=== PATIENT | male | born 1935 | race Caucasian/White ===

== ENCOUNTER 2016-08-29 09:14 | Emergency (ER) | payer MEDICARE, BC ==
[2016-08-29] MEDS ORDERED: 0.9 % SODIUM CHLORIDE 1,000 ML BAG IV ONE (09:29)
--- NOTE | 2016-08-29 09:30 | Emergency Department Record ---
History of Present Illness - General Chief complaint: Weakness Stated complaint: FEVER,WEAKNESS Time Seen by Provider: 08/29/16 09:23 Source: Patient, EMS Mode of Arrival: EMS Limitations: No limitations - History of Present Illness Initial comments: 80 yo male presents with weakness, dizziness, subjective fevers. He states he began to not feel well last night. He noted that he had chills and subjective fevers. Mild cough. No NVD. No rash. This morning he felt weak, lightheaded and dizzy. He denies and syncope. No chest pain. He did not have a Flu shot yet this year. No dysuria. PCP is Dr Pena. Complaint: Generalized weakness Onset/Timin -: Hour(s) Location: Generalized Severity: Mild Improves with: None Worsens with: None Associated Symptoms: Fever/chills - [place] Coma Scale Eye Response: (4) Open spontaneously Motor Response: (6) Obeys commands Verbal Response: (5) Oriented [place] Total: 15 - Related Data Home Medications Medication Instructions Recorded Confirmed Last Taken Albuterol Sulfate [Proair Hfa] 1 - 2 puff IH .EVERY 4-6 HOURS PRN 01/24/1508/2912/12/15 Fexofenadine HCl 180 mg PO DAILY 01/24/15 08/29/16 12/13/15 Fluticasone/Salmeterol [Advair 1 each IH Q6H 01/24/15 08/29/16 12/12/15 100-50 Diskus] Omeprazole [Prilosec] 20 mg PO DAILY 01/24/15 08/29/16 08/28/16 Ropinirole HCl [Requip] 0.25 mg PO QHS 01/24/15 08/29/16 08/28/16 Aspirin [Adult Low Dose Aspirin EC] 81 mg PO DAILY 08/29/16 08/29/16 Unknown Previous Rx's Medication Instructions Recorded Aspirin [Ecotrin] 325 mg PO DAILY #100 tablet. 12/15/15 Levothyroxine Sodium [Synthroid] 125 mcg PO DAILYTHY #30 tablet 12/15/15 Allergies Allergy/AdvReac Type Severity Reaction Status Date / Time Penicillins [PENICILLINS] AdvReac Unknown VOMITING Verified 08/29/16 09:22 Travel Screening - Travel/Exposure Within Last 30 Days Have you traveled within the last 30 days?: No Review of Systems Constitutional: Reports: Chills, Fever, Malaise, Weakness Eyes: Denies: Eye discharge, Eye pain, Photophobia, Vision change ENT: Reports: Congestion. Denies: Ear pain, Epistaxis Respiratory: Reports: Cough. Denies: Dyspnea, Hemoptysis, Stridor, Wheezes Cardiovascular: Denies: Chest pain, Palpitations, Syncope Endocrine: Reports: Fatigue. Denies: Polydipsia, Polyuria Gastrointestinal: Reports: Nausea. Denies: Abdominal pain, Constipation, Diarrhea, Hematochezia, Vomiting Genitourinary: Denies: Dysuria, Frequency, Hematuria Musculoskeletal: Reports: Neck pain. Denies: Arthralgia, Back pain, Joint swelling Skin: Denies: Bruising, Change in color, Rash Neurological: Reports: Vertigo, Weakness. Denies: Confusion, Headache, Numbness , Paresthesias, Seizure, Tingling, Tremors Psychiatric: Denies: Anxiety Hematological/Lymphatic: Denies: Blood Clots, Easy bleeding, Easy bruising, Swollen glands Past Medical History - SOCIAL HISTORY Smoking Status: Former smoker Alcohol Use: Occassional Drug Use: None - RESPIRATORY Hx Respiratory Disorders: Yes Hx Asthma: Yes Hx COPD: Yes - CARDIOVASCULAR Hx Cardio Disorders: Yes Hx Abnormal EKG: Yes Hx Heart Attack: Yes Hx Hypertension: Yes Hx Pacemaker/Defib: Yes - NEURO Hx Neuro Disorders: Yes - GI Hx GI Disorders: Yes Comment:: constipation - Hx Genitourinary Disorders: Yes Hx Prostate Problems: Yes (Prostate) - ENDOCRINE Hx Endocrine Disorders: Yes Hx Thyroid Disease: Yes (Hypo) - MUSCULOSKELETAL Hx Musculoskeletal Disorders: Yes Hx Arthritis: Yes (Generalized) - PSYCH Hx Psych Problems: No - HEMATOLOGY/ONCOLOGY Hx Hematology/Oncology Disorders: Yes Hx Cancer: Yes (Prostate) Hx Chemotherapy: No Hx Radiation Therapy: No Family Medical History Any Significant Family History?: Yes Hx Cancer: Brother/Sister Hx Heart Disease: Father Physical Exam - General General Appearance: Alert, Oriented x3, Cooperative, No acute distress Limitations: No limitations - Head Head exam: Atraumatic, Normocephalic, Normal inspection - Eye Eye exam: Normal appearance, PERRL. negative: Conjunctival injection, Scleral icterus - ENT ENT exam: Mucous membranes dry, Normal orophraynx Ear exam: Normal external inspection. negative: External canal tenderness Nasal Exam: Normal inspection. negative: Discharge, Sinus tenderness Mouth exam: Normal external inspection, Tongue normal Teeth exam: Normal inspection. negative: Dental caries Throat exam: Normal inspection. negative: Tonsillar erythema, Tonsillar exudate - Neck Neck exam: Normal inspection, Full ROM. negative: Lymphadenopathy, Tenderness, Thyromegaly - Respiratory Respiratory exam: Normal lung sounds bilaterally. negative: Respiratory distress - Cardiovascular Cardiovascular Exam: Regular rate, Normal rhythm, Normal heart sounds - GI/Abdominal GI/Abdominal exam: Soft. negative: Distended, Guarding, Rebound, Rigid, Tenderness - Rectal Rectal exam: Deferred - exam: Deferred - Extremities Extremities exam: Normal inspection, Full ROM, Normal capillary refill. negative: Tenderness - Back Back exam: Reports: Normal inspection, Full ROM. Denies: CVA tenderness (R), CVA tenderness (L), Muscle spasm, Paraspinal tenderness, Rash noted, Tenderness , Vertebral tenderness - Neurological Neurological exam: Alert, CN II-XII intact, Normal gait, Oriented X3. negative : Altered - Psychiatric Psychiatric exam: Normal affect, Normal mood. negative: Agitated, Anxious - Skin Skin exam: Dry, Intact, Normal color, Warm Course Vital Signs 08/29/16 09:16 Temperature 97.8 F Pulse Rate 68 Respiratory 20 Rate Blood Pressure 92/66 Pulse Ox 95 - Reevaluation(s) Reevaluation #1: EKG 0929 Atrial Paced, capture, [place] left, ST no acute changes 08/29/16 09:38 Reevaluation #2: The CBC demonstrated a chronic anemia, CMP no acute changes, Troponin is negative, Influenza is negative. 08/29/16 10:17 BP 102/51 The patient states he feels back to normal at this time Additional history provided by his who is in the ER The CXR and HCT were negative for acute changes or acute process 08/29/16 10:25 Reevaluation #3: The patient walked to the restroom and back without any difficulty No UA yet. He will be given water He denies any complaints 08/29/16 10:47 Reevaluation #4: The UA is negative I will inform the patient's PCP of his symptoms prior to disposition. 08/29/16 13:26 Reevaluation #5: I SW Dr Pena He will see him in the office on He is to return if any symptoms recur 08/29/16 13:36 Medical Decision Making - Lab Data Result diagrams: 08/29/16 09:25 08/29/16 09:25 Disposition Disposition: Discharge Clinical Impression: Chills, Dizziness Disposition: Home, Self-Care Condition: (1) Good Instructions: Weakness (ED) Additional Instructions: Immediately return if you have any return of your symptoms Stay well hydrated Call Dr Pena for very close follow up of this ER visit Forms: Patient Portal Access Time of Disposition: 13:28
[2016-08-29 09:38] LABS: HEMATOCRIT 30.6 % (42.0-52.0); HEMOGLOBIN 10.3 gm/dl (14.0-18.0); MEAN CORPUSCULAR HGB CONC 33.7 g/dl (32-36); MEAN PLATELET VOLUME 8.6 fl (7.4-10.4); PLATELET COUNT 199 K/uL (130-400); RED BLOOD COUNT 2.86 M/uL (4.40-5.70); RED CELL DISTRIBUTION WIDTH 16.5 % (11.5-14.5); WHITE BLOOD COUNT W/O DIFF 9.8 K/uL (4.2-12.2)
[2016-08-29 09:51] LABS: ALB/GLOB RATIO 1.3 (1.1-1.8); ALBUMIN 3.9 gm/dL (3.5-5.0); ALKALINE PHOSPHATASE 116 U/L (38-126); ALT/SGPT 35 U/L (21-72); ANION GAP 11.8 (7-16); AST/SGOT 44 U/L (17-59); BILIRUBIN,TOTAL 0.67 mg/dL (0.2-1.3); BLOOD UREA NITROGEN 18 mg/dL (9-20); CARBON DIOXIDE 23.2 mmol/L (22-30); EST GLOMERULAR FILTRATION RATE > 60 ml/min; GLUCOSE,RANDOM 152 mg/dL (70-110); PLATELET ESTIMATE NORMAL (NORMAL); TOTAL PROTEIN 6.8 gm/dL (6.3-8.2)
[2016-08-29 09:58] LABS: INFLUENZA A NEGATIVE (NEGATIVE)
[2016-08-29 09:59] LABS: INFLUENZA B NEGATIVE (NEGATIVE)
[2016-08-29 10:02] LABS: TROPONIN I < 0.012 ng/mL (0.00-0.034)
[2016-08-29 13:07] LABS: URINE APPEARANCE CLEAR; URINE BILIRUBIN SMALL (NEGATIVE); URINE COLOR DARK YELLOW; URINE GLUCOSE (UA) NEGATIVE (NEGATIVE)
[2016-08-29 13:08] LABS: URINE BLOOD NEGATIVE (NEGATIVE); URINE KETONE NEGATIVE (NEGATIVE); URINE LEUKOCYTE ESTERASE NEGATIVE (NEGATIVE); URINE NITRITE NEGATIVE (NEGATIVE); URINE PROTEIN NEGATIVE (NEGATIVE); URINE UROBILINOGEN 0.2 E.U./dL (0.20 - 1.00)
--- NOTE | 2016-09-01 09:52 | RADIOLOGY REPORT ---
EXAM: HEAD CT WITHOUT CONTRAST HISTORY: FAINTING, DIZZINESS, WEAKNESS. TECHNIQUE: Noncontrast head CT was obtained. Comparison: Head CT 12/13/15. Encounter: Initial. Hand dominance: Unknown. FINDINGS: Moderate generalized atrophy of the brain. No acute intracranial hemorrhage, mass effect, or midline shift. No CT evidence of acute territorial infarct. Mild decreased attenuation in the periventricular white matter of the cerebral hemispheres. The ventricles, basal cisterns and sulci are within normal limits. Bilateral lens implants. The osseous structures and paranasal sinuses are unremarkable. IMPRESSION: 1. NO ACUTE INTRACRANIAL PROCESS. 2. GENERALIZED ATROPHY OF THE BRAIN WITH MILD CHRONIC SMALL VESSEL ISCHEMIC CHANGE. JOB NUMBER: [id number] [facility]
--- NOTE | 2016-09-01 09:54 | RADIOLOGY REPORT ---
EXAM: CHEST, TWO VIEWS HISTORY: DIZZINESS, WEAKNESS, FAINTING. TECHNIQUE: Two views of the chest were obtained. Comparison: Chest x-ray 01/24/15. FINDINGS: Left side pacemaker is present. Chronic linear/reticular opacity at the right apex consistent with scarring. The left lung is clear. The cardiomediastinal silhouette is top normal in size. The diaphragm is unremarkable. Osteopenia. IMPRESSION: CHRONIC SCARRING AT THE RIGHT APEX. NO ACUTE INTRATHORACIC PROCESS. JOB [facility]BER: [id number] [facility]
== END 2016-08-29 13:53 | disposition home or self-care (01) ==
LOC: ER 09:14
DX: R42 Dizziness and giddiness (principal); R50.9 Fever, unspecified; R53.1 Weakness; J44.9 Chronic obstructive pulmonary disease, unspecified; I10 Essential (primary) hypertension; I25.2 Old myocardial infarction; Z87.891 Personal history of nicotine dependence
CPT/HCPCS: 70450; 71020; 80053; 81003; 82550; 82553; 84484; 85027; 87400; 93005; 93010; 96360; 96361; 99284; J7030

== ENCOUNTER 2017-01-01 10:18 | Emergency (ER) | payer MEDICARE, BC ==
[2017-01-01 10:30] LABS: HEMATOCRIT 30.3 % (42.0-52.0); HEMOGLOBIN 9.9 gm/dl (14.0-18.0); MEAN CELL VOLUME 108.6 fl (81-97); MEAN CORPUSCULAR HGB CONC 32.7 g/dl (32-36); MEAN PLATELET VOLUME 9.1 fl (7.4-10.4); PLATELET COUNT 256 K/uL (130-400); RED BLOOD COUNT 2.79 M/uL (4.40-5.70); RED CELL DISTRIBUTION WIDTH 17.1 % (11.5-14.5); WHITE BLOOD COUNT W/O DIFF 9.8 K/uL (4.2-12.2)
--- NOTE | 2017-01-01 10:31 | Emergency Department Record ---
History of Present Illness - General Chief Complaint: Syncope Stated Complaint: SYNCOPAL EPISODE Time Seen by Provider: 01/01/17 10:22 Source: Patient, EMS Mode of Arrival: EMS Limitations: No limitations Travel/Exposure to [place] Within 21 Days of Symptoms: No - History of Present Illness Initial Comments: 81 yo male presents to ED with a CC of near syncope at home this morning witnessed by the patient's , denies LOC. Patient complains of "extreme thirst" and generalized weakness. Patient reports that he was drinking water in the kitchen when he passed out. Patient denies recent illness, fevers, chills, or cough symptoms. Patient reports history of chronic anemia. Patient denies focal weakness, chest pain, difficulty breathing, or recent illness. MD Complaint: Almost passed out Prodromal Symptoms: Lightheaded -: Second(s) Witnessed: No Injuries Sustained Associated with Event: None Current Symptoms: Other (Thirsty) Treatments Prior to Arrival: IV fluids - [place] Coma Scale Eye Response: (4) Open spontaneously Motor Response: (6) Obeys commands Verbal Response: (5) Oriented [place] Total: 15 - Related Data Home Medications Medication Instructions Recorded Confirmed Last Taken Albuterol Sulfate [Proair Hfa] 1 - 2 puff IH .EVERY 4-6 HOURS PRN 01/24/1501/0112/12/15 Fexofenadine HCl 180 mg PO DAILY 01/24/15 01/01/17 12/13/15 Fluticasone/Salmeterol [Advair 1 each IH Q6H 01/24/15 01/01/17 12/12/15 100-50 Diskus] Omeprazole [Prilosec] 20 mg PO DAILY 01/24/15 01/01/17 08/28/16 Ropinirole HCl [Requip] 0.25 mg PO QHS 01/24/15 01/01/17 08/28/16 Aspirin [Adult Low Dose Aspirin EC] 81 mg PO DAILY 08/29/16 01/01/17 Unknown Previous Rx's Medication Instructions Recorded Levothyroxine Sodium [Synthroid] 125 mcg PO DAILYTHY #30 tablet 12/15/15 Allergies Allergy/AdvReac Type Severity Reaction Status Date / Time Penicillins [PENICILLINS] AdvReac Unknown VOMITING Verified 08/29/16 09:22 Review of Systems Constitutional: Reports: Weakness. Denies: Chills, Fever, Malaise, Night sweats Eyes: Denies: Eye discharge, Eye pain ENT: Denies: Congestion, Ear pain, Epistaxis Respiratory: Denies: Cough, Dyspnea Cardiovascular: Denies: Chest pain, Dyspnea on exertion Endocrine: Denies: Fatigue, Heat or cold intolerance Gastrointestinal: Denies: Abdominal pain, Nausea, Vomiting Genitourinary: Denies: Incontinence, Retention Musculoskeletal: Denies: Arthralgia, Back pain, Gout, Joint swelling Skin: Denies: Bruising, Change in color Neurological: Denies: Abnormal gait, Confusion, Headache, Seizure Psychiatric: Denies: Anxiety Hematological/Lymphatic: Reports: Anemia. Denies: Blood Clots Past Medical History - SOCIAL HISTORY Smoking Status: Former smoker Drug Use: None - RESPIRATORY Hx Respiratory Disorders: Yes Hx Asthma: Yes Hx COPD: Yes - CARDIOVASCULAR Hx Cardio Disorders: Yes Hx Abnormal EKG: Yes Hx Heart Attack: Yes Hx Hypertension: Yes Hx Pacemaker/Defib: Yes - NEURO Hx Neuro Disorders: Yes - GI Hx GI Disorders: Yes Comment:: constipation - Hx Genitourinary Disorders: Yes Hx Prostate Problems: Yes (Prostate) - ENDOCRINE Hx Endocrine Disorders: Yes Hx Thyroid Disease: Yes (Hypo) - MUSCULOSKELETAL Hx Musculoskeletal Disorders: Yes Hx Arthritis: Yes (Generalized) - PSYCH Hx Psych Problems: No - HEMATOLOGY/ONCOLOGY Hx Hematology/Oncology Disorders: Yes Hx Cancer: Yes (Prostate) Hx Chemotherapy: No Hx Radiation Therapy: No Family Medical History Hx Cancer: Brother/Sister Hx Heart Disease: Father Physical Exam - General General Appearance: Alert, Oriented x3, Cooperative, Mild distress, Other ( appears pale on examination, no new focal deficits on examination) Limitations: No limitations - Head Head exam: Atraumatic, Normocephalic, Normal inspection Head exam detail: negative: Abrasion, Contusion, Bowens's sign, General tenderness, Hematoma, Laceration - Eye Eye exam: Normal appearance. negative: Conjunctival injection, Periorbital swelling, Periorbital tenderness, Scleral icterus - ENT Ear exam: negative: Auricular hematoma, Auricular trauma Nasal Exam: negative: Active bleeding, Discharge, Dried blood, Foreign body Mouth exam: negative: Drooling, Laceration, Muffled voice, Tongue elevation - Neck Neck exam: Normal inspection. negative: Meningismus, Tenderness - Respiratory Respiratory exam: Normal lung sounds bilaterally. negative: Rales, Respiratory distress, Rhonchi, Stridor - Cardiovascular Cardiovascular Exam: Regular rate, Normal rhythm, Normal heart sounds - GI/Abdominal GI/Abdominal exam: Soft. negative: Rebound, Rigid, Tenderness - Rectal Rectal exam: Deferred - exam: Deferred - Extremities Extremities exam: Normal inspection. negative: Pedal edema, Tenderness - Back Back exam: Denies: CVA tenderness (R), CVA tenderness (L) - Neurological Neurological exam: Alert, Normal gait, Oriented X3 - Psychiatric Psychiatric exam: Normal affect, Normal mood - Skin Skin exam: Pallor. negative: Abrasion Type of lesion: negative: abrasion Course - Reevaluation(s) Reevaluation #1: 01/01/17 11:14 EKG: NSR 74 Normal axis, normal intervals No acute ST-T wave changes Reevaluation #2: 01/01/17 12:56 3rd Liter NS infusing, patient is tolerating PO, ambulated with steady gait at his baseline. Awaiting UA sample. Will continue to monitor. Reevaluation #3: 01/01/17 13:24 UA negative, patient has ambulated to the bathroom with steady gait and appears stable for discharge at this time. Medical Decision Making - Lab Data Result diagrams: 01/01/17 10:05 01/01/17 10:05 Disposition Disposition: Discharge Clinical Impression: Near syncope, Dehydration Disposition: Home, Self-Care Condition: (2) Stable Instructions: Near Syncope (ED) Additional Instructions: Return to ED if your symptoms worsen or if you have any concerns. Follow-up with your family doctor in 1-3 days as directed. Drink plenty of fluids/rest. Forms: Patient Portal Access Time of Disposition: 13:25
[2017-01-01 10:32] LABS: MEAN CORPUSCULAR HEMOGLOBIN 35.4 pg (27-33)
[2017-01-01 10:44] LABS: LACTIC ACID 2.2 mmol/L (0.7-2.1)
[2017-01-01 10:48] LABS: ALB/GLOB RATIO 1.3 (1.1-1.8); ALBUMIN 3.9 gm/dL (3.5-5.0); ALKALINE PHOSPHATASE 122 U/L (38-126); ALT/SGPT 29 U/L (21-72); AST/SGOT 36 U/L (17-59); BLOOD UREA NITROGEN 14 mg/dL (9-20); CREATININE 0.9 mg/dL (0.66-1.25); EST GLOMERULAR FILTRATION RATE > 60 ml/min; GLUCOSE,RANDOM 113 mg/dL (70-110)
[2017-01-01] MEDS: 0.9 % SODIUM CHLORIDE 1000ML 1,000 ML IV SCH ×2 (10:49→12:34)
[2017-01-01 10:56] LABS: TROPONIN I < 0.012 ng/mL (0.00-0.034)
[2017-01-01 11:45] LABS: ABO GROUP A; ANTIBODY SCREEN NEGATIVE (NEGATIVE); RH TYPE POSITIVE
[2017-01-01] MEDS ORDERED: 0.9 % SODIUM CHLORIDE 1000ML 1,000 ML IV SCH ×2 (11:45→12:30)
[2017-01-01 13:19] LABS: URINE APPEARANCE SL CLOUDY; URINE BILIRUBIN NEGATIVE (NEGATIVE); URINE BLOOD NEGATIVE (NEGATIVE); URINE COLOR YELLOW; URINE GLUCOSE (UA) NEGATIVE (NEGATIVE); URINE KETONE NEGATIVE (NEGATIVE); URINE LEUKOCYTE ESTERASE NEGATIVE (NEGATIVE); URINE NITRITE NEGATIVE (NEGATIVE); URINE PROTEIN NEGATIVE (NEGATIVE)
== END 2017-01-01 13:36 | disposition home or self-care (01) ==
LOC: ER 10:18
DX: R55 Syncope and collapse (principal); E86.0 Dehydration; I10 Essential (primary) hypertension; I25.2 Old myocardial infarction; J44.9 Chronic obstructive pulmonary disease, unspecified; Z87.891 Personal history of nicotine dependence
CPT/HCPCS: 80053; 81003; 83605; 84484; 85027; 86850; 86900; 86901; 96360; 96361; 99284; J7030

== ENCOUNTER 2017-01-16 17:04 | Emergency (ER) | payer MEDICARE, BC ==
--- NOTE | 2017-01-16 17:21 | Emergency Department Record ---
History of Present Illness - General Chief complaint: Weakness Stated complaint: POSS STROKE Time Seen by Provider: 01/16/17 17:08 Source: Patient, Family (patient's ) Mode of Arrival: Wheelchair Limitations: No limitations - History of Present Illness Initial comments: 81 yo male presents to ED from PCP's office for evaluation of possible CVA. Patient reports headache symptoms and transient weakness 8 hours ago with being able to sit up, however reports that he is now at his baseline. Patient denies focal weakness at this time, denies change in speech, denies any new facial droop symptoms. at the bedside agrees that the patient appears at his baseline. Patient denies recent illness symptoms, but reports chronic anemia. MD Complaint: Generalized weakness Onset/Timin -: Hour(s) Location: Generalized Severity: Mild Consistency: Now resolved Improves with: None Worsens with: None Associated Symptoms: Denies other symptoms - [place] Coma Scale Eye Response: (4) Open spontaneously Motor Response: (6) Obeys commands Verbal Response: (5) Oriented [place] Total: 15 - Related Data Home Medications Medication Instructions Recorded Confirmed Last Taken Albuterol Sulfate [Proair Hfa] 1 - 2 puff IH .EVERY 4-6 HOURS PRN 01/24/1501/1612/12/15 Fexofenadine HCl 180 mg PO DAILY 01/24/15 01/16/17 12/13/15 Fluticasone/Salmeterol [Advair 1 each IH Q6H 01/24/15 01/16/17 12/12/15 100-50 Diskus] Omeprazole [Prilosec] 20 mg PO DAILY 01/24/15 01/16/17 08/28/16 Ropinirole HCl [Requip] 0.25 mg PO QHS 01/24/15 01/16/17 08/28/16 Aspirin [Adult Low Dose Aspirin EC] 81 mg PO DAILY 08/29/16 01/16/17 Unknown Previous Rx's Medication Instructions Recorded Levothyroxine Sodium [Synthroid] 125 mcg PO DAILYTHY #30 tablet 12/15/15 Allergies Allergy/AdvReac Type Severity Reaction Status Date / Time Penicillins [PENICILLINS] AdvReac Unknown VOMITING Verified 08/29/16 09:22 Travel Screening - Travel/Exposure Within Last 30 Days Have you traveled within the last 30 days?: No Review of Systems Constitutional: Reports: Weakness. Denies: Chills, Fever, Malaise, Night sweats Eyes: Denies: Eye discharge, Eye pain, Photophobia ENT: Denies: Congestion, Ear pain, Epistaxis Respiratory: Denies: Cough, Dyspnea Cardiovascular: Denies: Chest pain, Dyspnea on exertion Endocrine: Denies: Fatigue, Heat or cold intolerance Gastrointestinal: Denies: Abdominal pain, Nausea, Vomiting Genitourinary: Denies: Incontinence, Retention, Testicular pain Musculoskeletal: Denies: Arthralgia, Back pain, Gout, Joint swelling Skin: Denies: Bruising, Change in color Neurological: Reports: Headache. Denies: Abnormal gait, Confusion, Numbness, Seizure Psychiatric: Denies: Anxiety Hematological/Lymphatic: Denies: Anemia, Blood Clots Past Medical History - SOCIAL HISTORY Smoking Status: Former smoker Alcohol Use: None Drug Use: None - RESPIRATORY Hx Respiratory Disorders: Yes Hx Asthma: Yes Hx COPD: Yes - CARDIOVASCULAR Hx Cardio Disorders: Yes Hx Abnormal EKG: Yes Hx Heart Attack: Yes Hx Hypertension: Yes Hx Pacemaker/Defib: Yes - NEURO Hx Neuro Disorders: Yes - GI Hx GI Disorders: Yes Comment:: constipation - Hx Genitourinary Disorders: Yes Hx Prostate Problems: Yes (Prostate) - ENDOCRINE Hx Endocrine Disorders: Yes Hx Thyroid Disease: Yes (Hypo) - MUSCULOSKELETAL Hx Musculoskeletal Disorders: Yes Hx Arthritis: Yes (Generalized) - PSYCH Hx Psych Problems: No - HEMATOLOGY/ONCOLOGY Hx Hematology/Oncology Disorders: Yes Hx Cancer: Yes (Prostate) Hx Chemotherapy: No Hx Radiation Therapy: No Family Medical History Any Significant Family History?: Yes Hx Cancer: Brother/Sister Hx Heart Disease: Father Physical Exam - General General Appearance: Alert, Oriented x3, Cooperative, No acute distress Limitations: No limitations - Head Head exam: Atraumatic, Normocephalic, Normal inspection Head exam detail: negative: Abrasion, Contusion, Bowens's sign, General tenderness, Hematoma, Laceration - Eye Eye exam: Normal appearance. negative: Conjunctival injection, Periorbital swelling, Periorbital tenderness, Scleral icterus - ENT Ear exam: negative: Auricular hematoma, Auricular trauma Nasal Exam: negative: Active bleeding, Discharge, Dried blood, Foreign body Mouth exam: negative: Drooling, Laceration, Muffled voice, Tongue elevation - Neck Neck exam: Normal inspection. negative: Meningismus, Tenderness - Respiratory Respiratory exam: Normal lung sounds bilaterally. negative: Rales, Respiratory distress, Rhonchi, Stridor - Cardiovascular Cardiovascular Exam: Regular rate, Normal rhythm, Normal heart sounds - GI/Abdominal GI/Abdominal exam: Soft. negative: Rebound, Rigid, Tenderness - Rectal Rectal exam: Deferred - exam: Deferred - Extremities Extremities exam: Normal inspection. negative: Calf tenderness, Pedal edema, Tenderness - Back Back exam: Denies: CVA tenderness (R), CVA tenderness (L) - Neurological Neurological exam: Oriented X3, Other (No new cranial nerve abnormalities on examination, patient has chronic left sided facial weakness/abnormality). negative: Motor sensory deficit - Psychiatric Psychiatric exam: Normal affect, Normal mood - Skin Skin exam: Normal color. negative: Abrasion Type of lesion: negative: abrasion Course Vital Signs 01/16/17 17:08 Temperature 97.7 F Pulse Rate 83 Respiratory 32 H Rate Blood Pressure 113/79 Pulse Ox 97 - Reevaluation(s) Reevaluation #1: 01/16/17 18:11 EKG: NSR 70 Indetermiante axis, normal intervals Nonspecific ST changes V4-V6 Unchanged from 01/01/17 01/16/17 18:12 Reevaluation #2: 01/16/17 18:28 Labs reviewed, Hgb 9.1/HCT 27.5 (baseline for the patient), Sodium is 129. Labs are otherwise grossly unremarkable for an acute process. CT Brain: Atrophy, nothing acute. Patient is not a candidate for tPA given his examination (no focal deficit) as well as the duration of symptoms (8 hours). Patient has no clinical evidence for stroke on examination, and both he and his deny any history of recent focal weakness, change in facial musculature, or speech. There is no clinical or historical evidence at this time to suggest TIA this morning either. I offered the patient transfer to [facility] for further neurological evaluation, both the patient and his declined. Patient already takes ASA 81 mg daily as well. Patient was instructed to return immediately to ED for any reoccurrence of his symptoms and not wait 8 hours before presentation. 01/16/17 18:34 Medical Decision Making - Lab Data Result diagrams: 01/16/17 17:40 01/16/17 17:40 Disposition Disposition: Discharge Clinical Impression: Generalized weakness Disposition: Home, Self-Care Condition: (2) Stable Instructions: Weakness (ED) Additional Instructions: Return to ED if immediately if your symptoms worsen or if you have any concerns. Follow-up with Dr. Pena in 3-5 days as directed. Forms: Patient Portal Access Time of Disposition: 18:33
[2017-01-16 17:47] LABS: HEMATOCRIT 27.5 % (42.0-52.0); HEMOGLOBIN 9.1 gm/dl (14.0-18.0); MEAN CELL VOLUME 107.4 fl (81-97); MEAN CORPUSCULAR HEMOGLOBIN 35.5 pg (27-33); MEAN CORPUSCULAR HGB CONC 33.1 g/dl (32-36); MEAN PLATELET VOLUME 8.8 fl (7.4-10.4); PLATELET COUNT 212 K/uL (130-400); RED BLOOD COUNT 2.56 M/uL (4.40-5.70); WHITE BLOOD COUNT W/O DIFF 11.9 K/uL (4.2-12.2)
[2017-01-16 18:03] LABS: ALB/GLOB RATIO 1.1 (1.1-1.8); ALBUMIN 3.8 gm/dL (3.5-5.0); ALKALINE PHOSPHATASE 116 U/L (38-126); ALT/SGPT 30 U/L (21-72); AST/SGOT 38 U/L (17-59); BLOOD UREA NITROGEN 22 mg/dL (9-20); CREATININE 0.8 mg/dL (0.66-1.25); EST GLOMERULAR FILTRATION RATE > 60 ml/min; GLUCOSE,RANDOM 87 mg/dL (70-110); INR 0.99; PROTHROMBIN TIME (PATIENT) 11.2 SECONDS (9.5-12.1); TOTAL PROTEIN 7.2 gm/dL (6.3-8.2)
[2017-01-16 18:16] LABS: TROPONIN I < 0.012 ng/mL (0.00-0.034)
--- NOTE | 2017-01-18 12:20 | CT SCAN REPORT ---
EXAM: HEAD CT WITHOUT CONTRAST HISTORY: VERTIGO AND WEAKNESS TODAY, POSSIBLE STROKE. TECHNIQUE: Axial CT scan of the head was performed without IV contrast. Comparison: Head CT dated 08/29/16. FINDINGS: No definite acute intracranial hemorrhage identified. No focal mass effect or midline shift apparent. Generalized atrophy with chronic appearing deep white matter changes, nonspecific, but likely representing some chronic small vessel deep white matter ischemic disease. No definite acute infarct or intracranial mass lesion is seen. No depressed calvarial fracture is evident. IMPRESSION: 1. GENERALIZED ATROPHY WITH CHRONIC APPEARING DEEP WHITE MATTER CHANGES. 2. NO DEFINITE ACUTE INTRACRANIAL HEMORRHAGE OR FOCAL MASS EFFECT IDENTIFIED. JOB NUMBER: [id number] [facility]TDD
== END 2017-01-16 18:53 | disposition home or self-care (01) ==
LOC: ER 17:04
DX: R53.1 Weakness (principal); E03.9 Hypothyroidism, unspecified; I10 Essential (primary) hypertension; J44.9 Chronic obstructive pulmonary disease, unspecified
CPT/HCPCS: 70450; 80053; 84484; 85027; 85610; 93005; 93010; 99284

== ENCOUNTER 2017-05-09 19:37 | Emergency (ER) | payer MEDICARE, BC ==
--- NOTE | 2017-05-09 19:50 | Emergency Department Record ---
History of Present Illness - General Chief Complaint: Dizziness Stated Complaint: DIZZINESS Time Seen by Provider: 05/09/17 19:41 Source: Patient Mode of Arrival: Ambulatory Limitations: No limitations - History of Present Illness Initial Comments: 81 yo male presents to ED with a CC of a "hot flash and dizziness" that occurred just prior to arrival. Patient reports that his symptoms have resolved and that he is "ready to go home". Patient reports that his symptoms occurred while playing card [place], denies recent illness, fevers, chills, nausea, or vomiting symptoms. Patient reports that his "hormone replacement" resulting from prostate removal is the cause of his intermittent symptoms. MD Complaint: Dizziness Onset/Timin -: Minutes(s) Timing: Sudden onset, Intermittent Description: Lightheadedness History of Same: Yes History of Trauma: No Severity: Moderate Improves With: Nothing Worsens With: Nothing Associated Symptoms: Denies other symptoms - [place] Coma Scale Eye Response: (4) Open spontaneously Motor Response: (6) Obeys commands Verbal Response: (5) Oriented Abel Total: 15 - Related Data Home Medications Medication Instructions Recorded Confirmed Last Taken Biotin 1,000 mcg PO QHS 05/09/17 05/09/17 Unknown Cholecalciferol (Vitamin D3) 1,000 unit PO DAILY 05/09/17 05/09/17 Unknown [Vitamin D3] Comp.stocking,Thigh,Long,X-Sml 1 each MC ASDIR 05/09/17 05/09/17 Unknown [T.e.d. Anti-Embolism Stocking] Cvs Leg Cramps Pain Relief. 1 tab PO BID 05/09/17 05/09/17 Unknown Furosemide [Lasix] 20 mg PO DAILY 05/09/17 05/09/17 Unknown Loperamide HCl [Loperamide] 2 mg PO ASDIR 05/09/17 05/09/17 Unknown Magnesium Hydroxide [Milk of 400 mg PO DAILY 05/09/17 05/09/17 Unknown Magnesia] Multivit-Min/FA/Lycopen/Lutein 1 each PO DAILY 05/09/17 05/09/17 Unknown [Centrum Silver Tablet] [place]-3 Acid Ethyl Esters [Lovaza] 2 gm PO DAILY 05/09/17 05/09/17 Unknown Potassium 99 mg PO DAILY 05/09/17 05/09/17 Unknown Sodium Chloride 1 gm PO BID 05/09/17 05/09/17 Unknown Vitamin E 400 unit PO DAILY 05/09/17 05/09/17 Unknown Previous Rx's Medication Instructions Recorded Levothyroxine Sodium [Synthroid] 125 mcg PO DAILYTHY #30 tablet 12/15/15 Allergies Allergy/AdvReac Type Severity Reaction Status Date / Time banana Allergy PT UNSURE Verified 05/09/17 19:50 OF REACTION cephalexin [From Keflex] Allergy NAUSEA AND Verified 05/09/17 19:50 VOMITING vancomycin Allergy RASH Verified 05/09/17 19:50 Penicillins [PENICILLINS] AdvReac Unknown VOMITING Verified 08/29/16 09:22 Review of Systems Constitutional: Denies: Chills, Fever, Malaise, Night sweats Eyes: Denies: Eye discharge, Eye pain ENT: Denies: Congestion, Ear pain, Epistaxis Respiratory: Denies: Cough, Dyspnea Cardiovascular: Reports: Edema. Denies: Palpitations, Syncope Endocrine: Denies: Fatigue, Heat or cold intolerance Gastrointestinal: Denies: Abdominal pain, Nausea, Vomiting Genitourinary: Denies: Incontinence, Retention Musculoskeletal: Denies: Arthralgia, Back pain, Gout, Joint swelling Skin: Denies: Bruising, Change in color Neurological: Reports: Vertigo. Denies: Abnormal gait, Confusion, Headache, Seizure Psychiatric: Denies: Anxiety Hematological/Lymphatic: Denies: Anemia, Blood Clots Past Medical History - SOCIAL HISTORY Smoking Status: Former smoker Drug Use: None - RESPIRATORY Hx Respiratory Disorders: Yes Hx Asthma: Yes Hx COPD: Yes - CARDIOVASCULAR Hx Cardio Disorders: Yes Hx Abnormal EKG: Yes Hx Heart Attack: Yes Hx Hypertension: Yes Hx Pacemaker/Defib: Yes - NEURO Hx Neuro Disorders: Yes - GI Hx GI Disorders: Yes Comment:: constipation - Hx Genitourinary Disorders: Yes Hx Prostate Problems: Yes (Prostate) - ENDOCRINE Hx Endocrine Disorders: Yes Hx Thyroid Disease: Yes (Hypo) - MUSCULOSKELETAL Hx Musculoskeletal Disorders: Yes Hx Arthritis: Yes (Generalized) - PSYCH Hx Psych Problems: No - HEMATOLOGY/ONCOLOGY Hx Hematology/Oncology Disorders: Yes Hx Cancer: Yes (Prostate) Hx Chemotherapy: No Hx Radiation Therapy: No Family Medical History Hx Cancer: Brother/Sister Hx Heart Disease: Father Physical Exam - General General Appearance: Alert, Oriented x3, Cooperative, No acute distress Limitations: No limitations - Head Head exam: Atraumatic, Normocephalic, Normal inspection Head exam detail: negative: Abrasion, Contusion, Bowens's sign, General tenderness, Hematoma, Laceration - Eye Eye exam: Normal appearance. negative: Conjunctival injection, Periorbital swelling, Periorbital tenderness, Scleral icterus - ENT Ear exam: negative: Auricular hematoma, Auricular trauma Nasal Exam: negative: Active bleeding, Discharge, Dried blood, Foreign body Mouth exam: negative: Drooling, Laceration, Muffled voice, Tongue elevation - Neck Neck exam: Normal inspection. negative: Meningismus, Tenderness - Respiratory Respiratory exam: Normal lung sounds bilaterally. negative: Rales, Respiratory distress, Rhonchi, Stridor - Cardiovascular Cardiovascular Exam: Regular rate, Normal rhythm, Normal heart sounds - GI/Abdominal GI/Abdominal exam: Soft. negative: Rebound, Rigid, Tenderness - Rectal Rectal exam: Deferred - exam: Deferred - Extremities Extremities exam: Pedal edema. negative: Calf tenderness, Tenderness - Back Back exam: Denies: CVA tenderness (R), CVA tenderness (L) - Neurological Neurological exam: Alert, Oriented X3. negative: Motor sensory deficit - Psychiatric Psychiatric exam: Normal affect, Normal mood - Skin Skin exam: Normal color. negative: Abrasion Type of lesion: negative: abrasion Course - Reevaluation(s) Reevaluation #1: 05/09/17 19:55 EKG: NSR 71 Normal axis, normal intervals No acute ST-T wave changes Reevaluation #2: 05/09/17 20:15 Labs reviewed, Hgb 8.1/HCT 25 (simialr to previous), Na 127. Labs are otherwise grossly unremarkable for an acute process. Unable to obtain UA as of yet. Reevaluation #3: 05/09/17 22:45 UA reviewed and appears negative for infection. BP 109/58, pulse 72. Patient appears stable for discharge with family members at the bedside. Medical Decision Making - Lab Data Result diagrams: 05/09/17 19:35 05/09/17 19:35 Disposition Disposition: Discharge Clinical Impression: Hot flash in male, Chronic anemia Disposition: Home, Self-Care Condition: (2) Stable Instructions: Dizziness (ED) Additional Instructions: Return to ED if your symptoms worsen or if you have any concerns. Follow-up with your family doctor in 1-3 days as directed. Forms: Patient Portal Access Time of Disposition: 22:47 Quality - Quality Measures Quality Measures: N/A - Blood Pressure Screening Does Patient Have Any of the Following: No Blood Pressure Classification: Normal BP Reading Systolic Measurement: 109 Diastolic Measurement: 58 Screening for High Blood Pressure: < Normal BP, F/U Not Required > [G8783]
[2017-05-09 19:55] LABS: HEMOGLOBIN 8.1 gm/dl (14.0-18.0); MEAN CELL VOLUME 107.3 fl (81-97); MEAN CORPUSCULAR HGB CONC 32.4 g/dl (32-36); MEAN PLATELET VOLUME 9.7 fl (7.4-10.4); PLATELET COUNT 251 K/uL (130-400); RED BLOOD COUNT 2.33 M/uL (4.40-5.70); RED CELL DISTRIBUTION WIDTH 19.7 % (11.5-14.5); WHITE BLOOD COUNT W/O DIFF 4.4 K/uL (4.2-12.2)
[2017-05-09 19:56] LABS: MEAN CORPUSCULAR HEMOGLOBIN 34.7 pg (27-33)
[2017-05-09 20:09] LABS: ALBUMIN 3.2 g/dL (4.0-5.0); ALKALINE PHOSPHATASE 145 U/L (40-129); ALT/SGPT 20 U/L (<41); AST/SGOT 32 U/L (10.0-50.0); BLOOD UREA NITROGEN 24 mg/dL (8-23); CREATINE PHOSPHOKINASE 56 U/L (39-308); CREATININE 0.9 mg/dL (0.7-1.2); EST GLOMERULAR FILTRATION RATE > 60 mL/min; GLUCOSE,RANDOM 103 mg/dL (74-109); TOTAL PROTEIN 6.4 g/dL (6.6-8.7)
[2017-05-09 20:19] LABS: CKMB 2.1 ng/mL (<6.73); TROPONIN I < 0.30 ng/mL (0.00-0.300)
[2017-05-09 22:42] LABS: URINE APPEARANCE CLEAR; URINE BILIRUBIN SMALL (NEGATIVE); URINE BLOOD NEGATIVE (NEGATIVE); URINE COLOR YELLOW; URINE GLUCOSE (UA) NEGATIVE (NEGATIVE); URINE KETONE TRACE (NEGATIVE); URINE LEUKOCYTE ESTERASE NEGATIVE (NEGATIVE); URINE NITRITE NEGATIVE (NEGATIVE); URINE PROTEIN TRACE (NEGATIVE)
== END 2017-05-09 23:00 | disposition home or self-care (01) ==
LOC: ER 19:37
DX: D64.9 Anemia, unspecified (principal); R42 Dizziness and giddiness; R23.2 Flushing; I10 Essential (primary) hypertension; I25.2 Old myocardial infarction; J44.9 Chronic obstructive pulmonary disease, unspecified; Z87.891 Personal history of nicotine dependence
CPT/HCPCS: 80053; 81003; 82550; 82553; 83605; 83880; 84484; 85027; 93005; 99284

== ENCOUNTER 2017-10-24 17:03 | Inpatient (IN) | payer BC, MEDICARE ==
--- NOTE | 2017-10-24 18:03 | Emergency Department Record ---
History of Present Illness - General Chief complaint: Weakness Stated complaint: WEAKNESS Time Seen by Provider: 10/24/17 17:59 Source: Patient, RN notes reviewed Mode of Arrival: EMS - History of Present Illness Initial comments: weak with nasal congestion and that is why he is SOB and he fell yesterday with a congustion right hip. Patient has a known history of anemia and his last hg 7.4 and he is seeing Dr. Grey tomorrow. Patient came in by ambulance because to weak. -: Unknown Location: Generalized - [place] Coma Scale Eye Response: (4) Open spontaneously Motor Response: (6) Obeys commands Verbal Response: (5) Oriented Abel Total: 15 - Related Data Previous Rx's Medication Instructions Recorded Levothyroxine Sodium [Synthroid] 125 mcg PO DAILYTHY #30 tablet 12/15/15 Allergies Allergy/AdvReac Type Severity Reaction Status Date / Time banana Allergy PT UNSURE Verified 10/24/17 17:12 OF REACTION cephalexin [From Keflex] Allergy NAUSEA AND Verified 10/24/17 17:12 VOMITING vancomycin Allergy RASH Verified 10/24/17 17:12 Penicillins [PENICILLINS] AdvReac Unknown VOMITING Verified 10/24/17 17:12 Travel Screening - Travel/Exposure Within Last 30 Days Have you traveled within the last 30 days?: No - Travel/Exposure Within Last Year Have you traveled outside the [place] in the last year?: No - Additonal Travel Details Have you been exposed to anyone with a communicable illness?: No - Travel Symptoms Symptom Screening: None Review of Systems Reviewed: No additional complaints except as noted below Constitutional: Reports: As per HPI. Denies: Chills, Fever, Malaise, Night sweats, Weakness, Weight change Eyes: Reports: As per HPI. Denies: Eye discharge, Eye pain, Photophobia, Vision change ENT: Reports: As per HPI. Denies: Congestion, Dental pain, Ear pain, Epistaxis , Hearing loss, Throat pain Respiratory: Reports: As per HPI. Denies: Cough, Dyspnea, Hemoptysis, Stridor, Wheezes Cardiovascular: Reports: As per HPI. Denies: Arrhythmia, Chest pain, Dyspnea on exertion, Edema, Murmurs, Orthopnea, Palpitations, Paroxysmal nocturnal dyspnea, Rheumatic Fever, Syncope Endocrine: Reports: As per HPI. Denies: Fatigue, Heat or cold intolerance, Polydipsia, Polyuria Gastrointestinal: Reports: As per HPI. Denies: Abdominal pain, Constipation, Diarrhea, Hematemesis, Hematochezia, Melena, Nausea, Vomiting Genitourinary: Reports: As per HPI. Denies: Dysuria, Frequency, Hematuria, Incontinence, Retention, Testicular pain, Testicular mass, Urgency Musculoskeletal: Reports: As per HPI. Denies: Arthralgia, Back pain, Gout, Joint swelling, Myalgia, Neck pain Skin: Reports: As per HPI. Denies: Bruising, Change in color, Change in hair/ nails, Lesions, Pruritus, Rash Neurological: Reports: As per HPI. Denies: Abnormal gait, Confusion, Headache, Numbness, Paresthesias, Seizure, Tingling, Tremors, Vertigo, Weakness Psychiatric: Reports: As per HPI. Denies: Anxiety, Auditory hallucinations, Depression, Homicidal thoughts, Suicidal thoughts, Visual hallucinations Hematological/Lymphatic: Reports: As per HPI. Denies: Anemia, Blood Clots, Easy bleeding, Easy bruising, Swollen glands Past Medical History - SOCIAL HISTORY Smoking Status: Former smoker Alcohol Use: None Drug Use: None - RESPIRATORY Hx Respiratory Disorders: Yes Hx Asthma: Yes Hx COPD: Yes - CARDIOVASCULAR Hx Cardio Disorders: Yes Hx Abnormal EKG: Yes Hx Heart Attack: Yes Hx Hypertension: Yes Hx Pacemaker/Defib: Yes - NEURO Hx Neuro Disorders: Yes Hx CVA: Yes (DENIES ANY RESIDUAL) - GI Hx GI Disorders: Yes Comment:: constipation - Hx Genitourinary Disorders: Yes Hx Prostate Problems: Yes (Prostate) - ENDOCRINE Hx Endocrine Disorders: Yes Hx Thyroid Disease: Yes (Hypo) - MUSCULOSKELETAL Hx Musculoskeletal Disorders: Yes Hx Arthritis: Yes (Generalized) - PSYCH Hx Psych Problems: No - HEMATOLOGY/ONCOLOGY Hx Hematology/Oncology Disorders: Yes Hx Cancer: Yes (Prostate) Hx Chemotherapy: No Hx Radiation Therapy: No Family Medical History Any Significant Family History?: Yes Hx Cancer: Brother/Sister Hx Heart Disease: Father Physical Exam - General General Appearance: Alert, Oriented x3, Cooperative, No acute distress - Head Head exam: Normal inspection - Eye Eye exam: Normal appearance, PERRL Pupils: Normal accommodation - ENT ENT exam: Normal exam, Mucous membranes moist, Normal external ear exam, Normal orophraynx, TM's normal bilaterally Ear exam: Normal external inspection. negative: External canal tenderness Nasal Exam: Normal inspection. negative: Discharge, Sinus tenderness Mouth exam: Normal external inspection, Tongue normal Teeth exam: Normal inspection. negative: Dental caries Throat exam: Normal inspection. negative: Tonsillar erythema, Tonsillar exudate - Neck Neck exam: Normal inspection, Full ROM. negative: Tenderness - Respiratory Respiratory exam: Normal lung sounds bilaterally. negative: Respiratory distress - Cardiovascular Cardiovascular Exam: Regular rate, Normal rhythm, Normal heart sounds - GI/Abdominal GI/Abdominal exam: Soft, Normal bowel sounds. negative: Tenderness - Rectal Rectal exam: Deferred - exam: Deferred - Extremities Extremities exam: Normal inspection, Full ROM, Normal capillary refill. negative: Tenderness - Back Back exam: Reports: Normal inspection, Full ROM. Denies: Muscle spasm, Rash noted, Tenderness - Neurological Neurological exam: Alert, Normal gait, Oriented X3, Reflexes normal - Psychiatric Psychiatric exam: Normal affect, Normal mood - Skin Skin exam: Dry, Intact, Normal color, Warm Course Vital Signs 10/24/17 17:13 Temperature 97.5 F L Pulse Rate 93 H Respiratory 20 Rate Blood Pressure 118/73 Pulse Ox 97 Medical Decision Making - Lab Data Result diagrams: 10/24/17 16:42 10/24/17 16:42 Disposition Clinical Impression: Weakness, Contusion of right hip, initial encounter Anemia Qualifiers: Anemia type: unspecified type Qualified Code(s): D64.9 - Anemia, unspecified Decision to Admit: Admit from ER Condition: (2) Stable Forms: Patient Portal Access Time of Disposition: 18:29 Quality - Quality Measures Quality Measures: N/A - Blood Pressure Screening Does Patient Have Any of the Following: No Blood Pressure Classification: Normal BP Reading Systolic Measurement: 118 Diastolic Measurement: 73 Screening for High Blood Pressure: < Normal BP, F/U Not Required > [G8783]
[2017-10-24 18:21] LABS: GRAN % 55.7 % (47-80); HEMATOCRIT 18.8 % (42.0-52.0); LYMPH % 42.3 % (16-45); MEAN CELL VOLUME 108.7 fl (81-97); MEAN CORPUSCULAR HEMOGLOBIN 35.8 pg (27-33); MEAN PLATELET VOLUME 10.4 fl (7.4-10.4); PLATELET COUNT 131 K/uL (130-400); RED BLOOD COUNT 1.73 M/uL (4.40-5.70); RED CELL DISTRIBUTION WIDTH 19.5 % (11.5-14.5); WHITE BLOOD COUNT W/O DIFF 2.1 K/uL (4.2-12.2)
[2017-10-24 18:23] LABS: HEMOGLOBIN 6.2 gm/dl (14.0-18.0)
[2017-10-24 18:32] LABS: BLOOD UREA NITROGEN 15 mg/dL (8-23); CREATININE 0.9 mg/dL (0.7-1.2); EST GLOMERULAR FILTRATION RATE > 60 mL/min
[2017-10-24 18:35] LABS: GLUCOSE,RANDOM 97 mg/dL (74-109)
[2017-10-24 19:42] LABS: ABO GROUP A; ANTIBODY SCREEN NEGATIVE (NEGATIVE); RH TYPE POSITIVE
[2017-10-24 19:43] LABS: IMMED. SPIN CROSSMATCH COMPATIBLE
[2017-10-24 19:44] LABS: IMMED. SPIN CROSSMATCH COMPATIBLE
[2017-10-24] MEDS ORDERED: 0.9 % SODIUM CHLORIDE 1000ML 1,000 ML IV PRN (19:56)
[2017-10-24] MEDS ORDERED: [UNRECOGNIZED DRUG - SUPPLY] MC SCH (19:56)
[2017-10-24] MEDS: IPRATROPIUM/ALBUTEROL (0.5MG/3MG) NEB INH SCH (22:16)
[2017-10-24] MEDS: ROPINIROLE HCL 1 MG TABLET PO SCH (22:49)
[2017-10-25] MEDS: BREO (FLUTICASONE/VILANTEROL) 100MCG/25MCG INHALER INH SCH (05:45)
[2017-10-25] MEDS: IPRATROPIUM/ALBUTEROL (0.5MG/3MG) NEB INH SCH ×5 (05:47→21:44)
[2017-10-25] MEDS: PANTOPRAZOLE SODIUM 40 MG TABLET PO SCH (06:23)
[2017-10-25 06:26] LABS: HEMATOCRIT 21.2 % (42.0-52.0)
[2017-10-25] MEDS ORDERED: LEVOTHYROXINE SODIUM 125 MCG TABLET PO SCH (07:00)
--- NOTE | 2017-10-25 07:40 | RADIOLOGY REPORT ---
EXAM: RIGHT HIP HISTORY: PAIN POST FALL. WEAKNESS. TECHNIQUE: An AP view of the pelvis was obtained as well as AP and frog leg lateral views of the right hip. Comparison: None. Encounter: Initial. FINDINGS: There is normal bone mineralization. No definite fracture, dislocation, or destructive bone lesion is seen. Evaluation of the femoral necks is, however, slightly limited due to external rotation of the femurs. This causes apparent foreshortening of the femoral heads though this appears symmetric on the AP view of the pelvis. There are mild degenerative changes of each hip as well as the sacroiliac joints. There are moderate degenerative changes of the lower lumbar spine. IMPRESSION: NO DEFINITE ACUTE FRACTURE NOR DISLOCATION. EVALUATION OF THE FEMORAL NECKS IS SOMEWHAT LIMITED, HOWEVER, BY EXTERNAL ROTATION OF THE FEMURS. JOB NUMBER: [id number] [facility]
[2017-10-25 08:42] LABS: IMMED. SPIN CROSSMATCH COMPATIBLE
[2017-10-25] MEDS ORDERED: FUROSEMIDE 20 MG TABLET PO SCH (10:00)
[2017-10-25 14:21] LABS: HEMATOCRIT 25.7 % (42.0-52.0); HEMOGLOBIN 8.7 gm/dl (14.0-18.0)
[2017-10-25] MEDS ORDERED: METHYLPREDNISOLONE PF 125MG/VIAL IVP ONE (15:30)
[2017-10-25] MEDS ORDERED: PHENOL SORE THROAT SPRAY 177 ML BTL MM PRN (15:30)
--- NOTE | 2017-10-25 17:43 | Inpatient Certification ---
Inpatient Certification Admit to inpatient care: Based on my medical assessment, after consideration of patient's risk factors (age, co-morbidities and patient presenting symptoms and acuity), I expect that this patient will remain in the hospital greater than or equal to two midnights and that the services needed warrant inpatient care because: Patient Risk Factors: [anemia and prostate cancer and weakness and difficulty walking] Estimated length of stay: [3] The patient may reasonably be expected to be discharged or transferred to a hospital within 96 hours after admission to [facility]. Services needed: [blood transfusion and physical therapy] Post hospital care (if known): [] I certify that my determination is in accordance with my understanding of Medicare requirements for reasonable and necessary inpatient services. 10/25/17 17:41
--- NOTE | 2017-10-25 18:46 | Rehab Evaluation ---
Patient Information - Patient Information Diagnosis: Weakness, anemia, fall, R hip contusion Ordered Treatment: PT Evaluate and Treat Status: Initial Evaluation Surgery: No History: Detail (Pt presented to ED yesterday evening, after experiencing a fall at home on Sunday morning. He was assisted to bed by a neighbor, and patient's 's caregiver became concerned about his breathing and appearance by Sunday afternoon. Pt's daughter advised caregiver to call ambulance for transport to ED. He was admitted to [facility] for medical management of anemia.) Past Medical/Surgical Hx: PAST MEDICAL/SURGICAL HISTORY Past Surgical History Pacemaker Prostate surgery 2000 Bilateral cataract PMH - Respiratory Hx Respiratory Disorders Yes Hx Asthma Yes Hx Chronic Obstructive Yes Pulmonary Disease (COPD) PMH - Cardiovascular Hx Cardiovascular Disorders Yes Hx Abnormal EKG Yes Hx Heart Attack Yes Hx Hypertension Yes Hx Pacemaker/Defibrillator Yes PMH - Neuro Hx Neurological Disorders Yes Hx Cerebrovascular Accident Yes: DENIES ANY RESIDUAL PMH - GI Hx Gastrointestinal Disorders Yes Comment: constipation PMH - Hx Genitourinary Disorders Yes Hx Prostate Problems Yes: Prostate PMH - Endocrine Hx Endocrine Disorders Yes Hx Thyroid Disease Yes: Hypo PMH - Musculoskeletal Hx Musculoskeletal Disorders Yes Hx Arthritis Yes: Generalized PMH - Psych Hx Psychiatric Problems No PMH - Hematology/Oncology Hx Hematology/Oncology Yes Disorders Hx Cancer Yes: Prostate Hx Chemotherapy No Hx Radiation Therapy No Premorbid Status: Detail (Pt's history is provided by the patient and his daughter, Madeleine Montgomery, who lives next door to the patient and his . Pt has had anemia for many years and has recently been experiencing bouts of dehydration and syncope requiring ED or hospitalization. She attributes this to the patient taking too many medications, and she has been working to decrease the number of medications he is taking, but compliance is an issue. He has been walking with a front wheeled walker at home for at least the past six months, independently, but he has had multiple falls related to drop in BP and/or syncope, but patient's daughter states he may be having petit mal seizures at times as well. The patient's daughter states the patient had a course of home physical therapy sometime in the last year, and that he still does some of the exercises on his own. He demonstrates standing marching, hip abd, hip extn, squats.) Social History: Detail (Patient lives with his in a single story home with 3 steps to enter, with single handrail. His is currently on hospice and on oxygen, but she does some laundry and cooking. She has a home health aide that comes in twice weekly and assists with some home management tasks. Pt's daughter gets groceries for them, takes them to medical appointments, and assists with their care. Pt was independent with getting in/out of bed, walking household distances with front wheeled walker, getting dressed, and self -care, although patient's daughter suspects that he doesn't bathe regularly. They have a double walk-in shower with bench seats.) Precautions: [place], Fall - Time With Patient Total Time Spent With Patient (Min): 45 Treatment Procedures: Detail (PT Evaluation) Subjective Information - Subjective Information Per Patient (Pt denies pain initially, then states R hip is sore after questioned specifically about it. He is able to provide some of the history but looks to his daughter to help verify some of the information.) Objective Data - Pain Pain Present: Yes Pain Intensity: 3 (R hip) Pain Scale Used: Numeric (1 - 10) - Mental Status Patient Orientation: Oriented x3 - Visual Perception Appears within normal limits for therapeutic activities - ROM Within normal limits (In hips, knees, and ankles.) - Strength/Tone Not within normal limits (4/5 strength in B hip flexion and extension, B knee flexion and extension, B ankle df; 4+/5 in B hip abduction and adduction.) - Coordination Appears within normal limits for therapeutic activities - Bed Mobility Needs Assist (Required contact guard assist to get up to sitting from sidelying in bed and verbal cues to scoot up in bed for positioning.) - Transfers Needs Assist (Required only supervision to come to standing at front-wheeled walker, to sit/stand at toilet, and to sit back on edge of bed.) - Balance Balance Sitting: Good (Was able to remove pants and soiled underwear independently while sitting on toilet, using grab bar for assistance. Was able to don clean briefs and put pajama pants on with minimal assist while sitting on toilet.) Balance Standing: Good (Was able to stand to pull pants and underwear down and up, tie pajama pants, without UE support, w/supervision only.) - Sensation Intact (To light touch in LE's.) - Gait Detail (Ambulated from bedside to bathroom/toilet and return w/CGA/standby assist, using front-wheeled walker, with assist for IV pole. Was somewhat short of breath and fatigued.) Therapy Assessment - Therapy Assessment Detail (Pt exhibits mild LE weakness and impaired activity tolerance. He had three units of blood transfused today, but hemoglobin is still only 8.7. He is likely to benefit from PT while hospitalized and once home. Unable to formally assess balance beyond functional activity due to fatigue.) Patient Education - Patient Education Teaching Topic: Precautions Response: Reinforcement Needed Teaching Method: Discussion Teaching Recipient: Patient, Family Barriers To Learning: None Problem List - Problem List Physical Therapy Problem List: Detail (1. Needs assist for bed mobility. 2. History of falls 3. Impaired activity tolerance 4. Mild LE weakness) Goals - Goals Physical Therapy Goals: 1. Pt will safely get in/out of bed. 2. Pt will safely and independently ambulate over household distances w/front wheeled walker. 3. Pt will tolerate 20 minutes of light activity without undue fatigue. 4. Formally assess balance for safety recommendations. Prognosis - Prognosis Good Plan - Plan Physical Therapy Plan: Pt will be seen 1-2x/day M-F for balance assessment, LE strengthening, ambulation, therapeutic activity, to facilitate safe return to home environment.
[2017-10-25] MEDS: ROPINIROLE HCL 1 MG TABLET PO SCH (21:30)
[2017-10-26] MEDS: LEVOTHYROXINE SODIUM 100 MCG TABLET PO SCH (06:07)
[2017-10-26] MEDS: PANTOPRAZOLE SODIUM 40 MG TABLET PO SCH (06:07)
[2017-10-26] MEDS: IPRATROPIUM/ALBUTEROL (0.5MG/3MG) NEB INH SCH ×5 (06:16→22:20)
[2017-10-26 06:56] LABS: HEMATOCRIT 25.1 % (42.0-52.0); HEMOGLOBIN 8.5 gm/dl (14.0-18.0); MEAN CELL VOLUME 94.7 fl (81-97); MEAN CORPUSCULAR HGB CONC 33.9 g/dl (32-36); MEAN PLATELET VOLUME 10.1 fl (7.4-10.4); PLATELET COUNT 111 K/uL (130-400); RED BLOOD COUNT 2.65 M/uL (4.40-5.70); WHITE BLOOD COUNT W/O DIFF 1.9 K/uL (4.2-12.2)
[2017-10-26 06:58] LABS: BLOOD UREA NITROGEN 13 mg/dL (8-23); CREATININE 0.7 mg/dL (0.7-1.2); EST GLOMERULAR FILTRATION RATE > 60 mL/min
[2017-10-26 07:01] LABS: GLUCOSE,RANDOM 116 mg/dL (74-109)
--- NOTE | 2017-10-26 07:24 | US VENOUS DOPPLER REPORT ---
EXAM: BILATERAL LOWER EXTREMITY DEEP VENOUS ULTRASOUND HISTORY: SWELLING. TECHNIQUE: Transverse and longitudinal sonographic images of the bilateral lower extremity deep venous system were obtained. Comparison: None. FINDINGS: Imaging over the bilateral lower extremity deep venous system shows no visible areas of thrombus formation. Normal compression and augmentation bilaterally. Doppler and spectral analysis with color flow was utilized. Normal waveforms bilaterally. IMPRESSION: 1. NEGATIVE EXAM. 2. NOT STATED PREVIOUSLY, IMAGING OF THE POSTERIOR TIBIAL AND PERONEAL VEINS IS SUBOPTIMAL DUE TO EDEMA. JOB NUMBER: [id number] [facility]
[2017-10-26] MEDS: BREO (FLUTICASONE/VILANTEROL) 100MCG/25MCG INHALER INH SCH ×2 (08:28→10:46)
--- NOTE | 2017-10-26 09:39 | History and Physical Report ---
DATE: 10/24/2017 CHIEF COMPLAINT: Weakness, dyspnea, and inability to walk. Pale. Visiting nurse saw him and felt he was too anemic to stay at home and sent him to the emergency department via ambulance. He also admits to nasal congestion and pain in the right hip area. He fell down yesterday. HISTORY OF PRESENT ILLNESS: This 81-year-old male with known history of chronic anemia being treated by Dr. Grey presented to the emergency department. PAST MEDICAL HISTORY: Chronic anemia being treated by Dr. Grey, COPD, history of alcoholism. He tells me he is not drinking anymore and I believe him. He has had some lower leg edema that looked more like lymphedema. He has had a cerebral infarction, CVA many years ago with no residual paralysis, coronary artery disease with no angina, GERD, hypercholesterolemia, hypothyroidism, neuropathy. He has a pacemaker, COPD, restless leg syndrome. He did use tobacco, has a history of it but he stopped smoking. PAST SURGICAL HISTORY: Bilateral cataracts, prostate surgery with prostate cancer, pacemaker. MEDICATIONS ON ADMISSION: 1. He has coenzyme Q once a day. 2. Krill oil once a day. 3. Advair Diskus 100/50 one puff b.i.d. 4. Requip 0.25 at h.s. 5. Levothyroxine 200 mcg a day. 6. He has support hose. 7. Ximena 1-3 times p.r.n. 8. Milk of magnesium p.r.n. 9. Vitamin D once a day. 10. Omeprazole 20 mg daily. 11. ProAir 2 puffs q.4 h. p.r.n. 12. Aspirin 81 mg daily. 13. Multiple vitamins once a day. 14. Reclast ophthalmic solution for dry eyes p.r.n. ALLERGIES: BANANAS, KEFLEX, VANCOMYCIN, PENICILLIN. FAMILY/PSYCHOSOCIAL HISTORY: Former smoker. He also chewed tobacco more than a year ago. He stopped. He has a long history of alcoholism; however, he stopped drinking. No drug abuse. His brother and sister had cancer. His father had heart disease. His is currently in hospice with lung cancer. She has been in hospice for about 7 months. REVIEW OF SYSTEMS: HEENT: He does have congestion and cough. His lips are now swollen today. Cardiovascular: No chest pain, palpitations, or arrhythmia. Respiratory: He has a cough but he says it is his typical cough. We will do a chest x-ray later today. He has a smoking history. Gastrointestinal: No nausea, vomiting, diarrhea, black stools, or bloody stools. Genitourinary: No dysuria, hematuria, frequency, or burning on urination. Musculoskeletal: He has arthritis but he is moving all 4 extremities. Neurological: Previous stroke but he has no residual paralysis. Endocrine: He has hypothyroidism. No diabetes. Integument: No rash, ulcers, change in moles, or yellow skin. He does have some edema in the arms and legs but not significant compared to what it was before. PHYSICAL EXAMINATION: VITALS: Height 5 feet 6 inches, weight 169 pounds. Temperature 97.7, pulse 88, blood pressure 123/64, respiratory rate 18, pulse ox 95% on room air. HEENT: Pupils are equal, round, and reactive to light and accommodation. Extraocular muscles are intact. Throat is clear. Nose is clear. Tympanic membranes are coleman. Lip lower extremity swollen. NECK: Supple. No jugular venous distention. No hepatojugular reflux. No carotid bruits. Thyroid is smooth. CARDIOVASCULAR: Regular rate and rhythm without murmurs, clicks, rubs, or gallops. RESPIRATORY: Coarse breath sounds and slight coughing with deep inspiration. ABDOMEN: Soft, nontender. No hepatosplenomegaly, no masses, no tenderness. Bowel sounds are active. Hemoccult is ordered but not obtained yet. EXTREMITIES: There is 1+ pitting edema of both legs. BREASTS: Normal male breasts. RECTAL: Exam deferred. GENITALIA: Deferred. NEUROLOGIC: Cranial nerves II-XII intact. No gross defects. Sensation normal, strength normal. Deep tendon reflexes equal bilaterally with Babinski negative. The patient is up and walking to the bathroom with a walker. MENTAL STATUS: Alert and oriented x3. IMPRESSION: 1. Anemia, acute on chronic. 2. Chronic obstructive pulmonary disease. 3. Coronary artery disease. 4. Hypertension. 5. History of cerebrovascular accident. 6. Hypothyroidism. 7. Osteoarthritis. 8. History of prostate cancer. PLAN: His hemoglobin in the emergency department was 6.2. He got 2 units of blood overnight. His hemoglobin was 7.0 this morning. We will give him another unit of blood and we will see what his hemoglobin is now. Dr. Grey is here today and he was supposed to see Dr. Grey as an outpatient and so we consulted Dr. Grey to see the patient. DANNY
--- NOTE | 2017-10-26 11:13 | Physical Therapy Tx Note ---
Physical Therapy Tx Note - Treatment Note Tolerated: Good Total Time Spent With Patient: 20 Physical Therapy Tx Note: Detail (The patient was laying in bed upon arrival. The patient required min. assist x1 to transfer from supine to sit. The patient was then able to independently transfer from sit to stand for ambulation. He used a 2WW to ambulate from his room to the nurse's station and back (about 60 feet total), and required supervision only. He showed no LOB with gait. Upon returning to his room, the patient indicated that he wanted to discuss his current HEP. The patient gave a demo of exercises, which included: Standing Hip Extension, Abduction, and Flexion. He demonstrated safety with exercises, and was instructed to continue as instructed by home therapist. The patient was returned to his bed, in supine, and with his call light in reach.) Physical Therapy Problem List: Detail (1. Needs assist for bed mobility. 2. History of falls 3. Impaired activity tolerance 4. Mild LE weakness) Physical Therapy Goals: 1. Pt will safely get in/out of bed. 2. Pt will safely and independently ambulate over household distances w/front wheeled walker - MET. 3. Pt will tolerate 20 minutes of light activity without undue fatigue. 4. Formally assess balance for safety recommendations. Physical Therapy Plan: Pt will be seen 1-2x/day M-F for balance assessment, LE strengthening, ambulation, therapeutic activity, to facilitate safe return to home environment.
[2017-10-26] MEDS: LEVOFLOXACIN/D5W 750 MG/150 ML BAG IVPB SCH (11:47)
[2017-10-26] MEDS: ENOXAPARIN 40 MG/0.4 ML SYR SQ SCH (11:48)
[2017-10-26] MEDS ORDERED: POLYVINYL ALCOHOL OPTH OPTH PRN (11:59)
[2017-10-26] MEDS: ACETAMINOPHEN 500 MG TABLET PO PRN ×2 (12:06→20:47)
--- NOTE | 2017-10-26 14:46 | Rehab Evaluation ---
Patient Information - Patient Information Diagnosis: Weakness, anemia, fall, R hip contusion Ordered Treatment: OT Evaluate and Treat Status: Initial Evaluation Surgery: No History: Detail (Pt presented to ED on 10/24/17, after experiencing a fall at home on Sunday morning. He was assisted to bed by a neighbor, and patient's 's caregiver became concerned about his breathing and appearance by Sunday afternoon. Pt's daughter advised caregiver to call ambulance for transport to ED. He was admitted to [facility] for medical management of anemia.) Past Medical/Surgical Hx: PAST MEDICAL/SURGICAL HISTORY Past Surgical History Pacemaker Prostate surgery 2000 Bilateral cataract PMH - Respiratory Hx Respiratory Disorders Yes Hx Asthma Yes Hx Chronic Obstructive Yes Pulmonary Disease (COPD) PMH - Cardiovascular Hx Cardiovascular Disorders Yes Hx Abnormal EKG Yes Hx Heart Attack Yes Hx Hypertension Yes Hx Pacemaker/Defibrillator Yes PMH - Neuro Hx Neurological Disorders Yes Hx Cerebrovascular Accident Yes: DENIES ANY RESIDUAL PMH - GI Hx Gastrointestinal Disorders Yes Comment: constipation PMH - Hx Genitourinary Disorders Yes Hx Prostate Problems Yes: Prostate PMH - Endocrine Hx Endocrine Disorders Yes Hx Thyroid Disease Yes: Hypo PMH - Musculoskeletal Hx Musculoskeletal Disorders Yes Hx Arthritis Yes: Generalized PMH - Psych Hx Psychiatric Problems No PMH - Hematology/Oncology Hx Hematology/Oncology Yes Disorders Hx Cancer Yes: Prostate Hx Chemotherapy No Hx Radiation Therapy No Premorbid Status: Detail (Pt reports he lives with spouse in a 1 story house with basement, he stays on the main floor. He reports he has 5 steps and 1 railing at the entrance. He reports he has a walk in shower, no seat or grab bars and an elevated toilet with handles. His is responsible for meal prep and laundry and they have a live hanger. He has a 4 wheeled walker, 2 wheeled walker and standard walker as well as a wheelchair.) Precautions: [place], Fall - Time With Patient Total Time Spent With Patient (Min): 35 Treatment Procedures: Detail (OT eval low complexity) Subjective Information - Subjective Information Per Patient Objective Data - Pain Pain Present: Yes ( senthil legs and right hip) - Mental Status Patient Orientation: Oriented x3 (Oriented to self, birthday, age, month, year and location.) - Visual Perception Appears within normal limits for therapeutic activities (Pt wears glasses at all times.) - ROM Not within normal limits (Senthil UEs WNL with exception of shoulder flexion which is limited to approx. 100 degrees.) - Strength/Tone Not within normal limits (Senthil UE strength 4-/5 throughout) - Coordination Appears within normal limits for therapeutic activities - Bed Mobility Needs Assist (Mod assist for supine to sit, mod assist for sit to supine.) - Transfers Independent (Ind with sit to stand with 2 wheeled walker.) - Balance Balance Sitting: Good Balance Standing: Fair - Sensation Intact - Gait Detail (Pt ambulated 50 feet with 2 wheeled walker and CG assist.) - ADL's/IADL's Detail (Pt reports nursing is assisting with toileting and ADLs.) Therapy Assessment - Therapy Assessment Detail (Pt became short of breath with ambulation, he presents with decreased endurance needed for safe and Ind mobility and ADLs.) Problem List - Problem List Physical Therapy Problem List: Detail (1. Needs assist for bed mobility. 2. History of falls 3. Impaired activity tolerance 4. Mild LE weakness) Occupational Therapy Problem List: Detail (1. Decreased endurance needed for safe and Ind ADLs. 2. Decreased UE strength. 3. Need to further assess ADLs.) Goals - Goals Physical Therapy Goals: 1. Pt will safely get in/out of bed. 2. Pt will safely and independently ambulate over household distances w/front wheeled walker - MET. 3. Pt will tolerate 20 minutes of light activity without undue fatigue. 4. Formally assess balance for safety recommendations. Occupational Therapy Goals: 1. Assess dressing/showering 2. Pt will demonstrate improved endurance needed for safe and Ind ADLs. 3. Pt will improve UE function to allow safe and Ind mobility and self cares. Prognosis - Prognosis Good Plan - Plan Physical Therapy Plan: Pt will be seen 1-2x/day M-F for balance assessment, LE strengthening, ambulation, therapeutic activity, to facilitate safe return to home environment. Occupational Therapy Plan: OT 2-4 days per week to address self cares, functional mobility, endurance and UE function to allow safe return home.
--- NOTE | 2017-10-26 17:42 | RADIOLOGY REPORT ---
EXAM: CHEST 2 VIEWS HISTORY: COUGH FOR TWO DAYS., SORE THROAT. TECHNIQUE: PA and lateral views. COMPARISON: Two-view chest, 08/29/16. FINDINGS: Dual-lead transvenous pacemaker remains in place. No pneumothorax evident. Heart size within normal limits. However, there is new blunting of the costophrenic angles bilaterally compared to the prior study likely representing small bilateral pleural effusions. Lungs appear hyperinflated suggesting underlying COPD. Some linear opacity in the right apical region again seen as before likely representing some pleural or parenchymal scarring. However, there is now a suggestion of a more focal nodular component approximately 1.5 cm in size. This may just be overlapping structures but short-term follow-up suggested and if this appearance persists, follow-up chest CT may be warranted to exclude a developing nodule in this location. IMPRESSION: 1. NEW BIBASILAR PLEURAL EFFUSION SINCE 08/29/16. 2. HYPERINFLATION SUGGESTING UNDERLYING COPD. 3. QUESTIONABLE 1.5 CM NODULE RIGHT UPPER LUNG. SHORT-TERM FOLLOW-UP SUGGESTED. JOB NUMBER: [id number] MTDD
--- NOTE | 2017-10-26 17:49 | RADIOLOGY REPORT ---
EXAM: METS or ARTHRITIC BONE SURVEY HISTORY: HISTORY OF PROSTATE CANCER, POSSIBLE MYELOMA. TECHNIQUE: An adult bone survey was performed with AP and lateral views of the spine and skull obtained along with AP views of the long bones, comprising a total of 16 views. COMPARISON: No prior adult bone survey with which to compare. FINDINGS: On the lateral view of the calvarium, there are a couple of rounded radiolucencies seen overlying the calvarium in the region of the inferior parietal and posterior temporal regions measuring about 1.6 cm and 1 cm in size. Prominent degenerative change seen in the lower cervical spine. Diffuse osteopenia is evident. Some diffuse interstitial prominence is seen in the lungs. Degenerative disc disease in the lower lumbar spine. Mild anterior subluxation of L3 on L4, which appears to be on a degenerative basis. No appreciable lytic lesion seen elsewhere in the adult bone survey. IMPRESSION: 1. DIFFUSE OSTEOPENIA. 2. ON THE LATERAL SKULL VIEW, THERE APPEAR TO BE A COUPLE OF ROUNDED RADIOLUCENCIES, WHICH ARE NONSPECIFIC ALTHOUGH COULD BE SEEN IN ASSOCIATION WITH MYELOMA. 3. NO ADDITIONAL LYTIC LESIONS IDENTIFIED ELSEWHERE ON THE BONE SURVEY. 4. DEGENERATIVE CHANGES IN THE SPINE, PARTICULARLY AT THE LOWER CERVICAL REGION AND IN THE LOWER LUMBAR REGION. JOB NUMBER: [id number] MTDD
[2017-10-26 18:30] LABS: URINE APPEARANCE SL CLOUDY; URINE BILIRUBIN NEGATIVE (NEGATIVE); URINE BLOOD NEGATIVE (NEGATIVE); URINE COLOR ORANGE; URINE GLUCOSE (UA) NEGATIVE (NEGATIVE); URINE KETONE TRACE (NEGATIVE); URINE LEUKOCYTE ESTERASE NEGATIVE (NEGATIVE); URINE NITRITE NEGATIVE (NEGATIVE); URINE PROTEIN NEGATIVE (NEGATIVE); URINE UROBILINOGEN 0.2 E.U./dL (0.20 - 1.00)
[2017-10-26] MEDS: ROPINIROLE HCL 1 MG TABLET PO SCH (21:02)
[2017-10-27] MEDS: PANTOPRAZOLE SODIUM 40 MG TABLET PO SCH (06:02)
[2017-10-27] MEDS: LEVOTHYROXINE SODIUM 100 MCG TABLET PO SCH (06:02)
[2017-10-27] MEDS: IPRATROPIUM/ALBUTEROL (0.5MG/3MG) NEB INH SCH ×5 (06:16→22:26)
[2017-10-27] MEDS: ENOXAPARIN 40 MG/0.4 ML SYR SQ SCH (09:11)
[2017-10-27] MEDS: LEVOFLOXACIN/D5W 750 MG/150 ML BAG IVPB SCH (09:11)
[2017-10-27] MEDS: BREO (FLUTICASONE/VILANTEROL) 100MCG/25MCG INHALER INH SCH (10:21)
[2017-10-27] MEDS ORDERED: PREDNISONE 20 MG TAB PO ONE (13:55)
[2017-10-27] MEDS ORDERED: ZINC OXIDE 28.35 GM TUBE TOP PRN (16:36)
[2017-10-27] MEDS: ROPINIROLE HCL 1 MG TABLET PO SCH (21:33)
[2017-10-27] MEDS: LOPERAMIDE 2 MG CAPSULE PO PRN (22:19)
[2017-10-28] MEDS: IPRATROPIUM/ALBUTEROL (0.5MG/3MG) NEB INH SCH ×5 (05:24→21:13)
[2017-10-28] MEDS: LOPERAMIDE 2 MG CAPSULE PO PRN ×3 (05:37→20:13)
[2017-10-28] MEDS: ACETAMINOPHEN 500 MG TABLET PO PRN ×2 (05:38→21:21)
[2017-10-28] MEDS: LEVOTHYROXINE SODIUM 100 MCG TABLET PO SCH (06:54)
[2017-10-28] MEDS: PANTOPRAZOLE SODIUM 40 MG TABLET PO SCH (06:54)
[2017-10-28] MEDS: PREDNISONE 20 MG TAB PO SCH ×2 (08:36→17:30)
[2017-10-28] MEDS: BREO (FLUTICASONE/VILANTEROL) 100MCG/25MCG INHALER INH SCH (09:14)
[2017-10-28] MEDS: LEVOFLOXACIN/D5W 750 MG/150 ML BAG IVPB SCH (09:34)
[2017-10-28] MEDS: ENOXAPARIN 40 MG/0.4 ML SYR SQ SCH (09:34)
[2017-10-28] MEDS: ROPINIROLE HCL 1 MG TABLET PO SCH (21:20)
[2017-10-29] MEDS: LEVOTHYROXINE SODIUM 100 MCG TABLET PO SCH ×2 (05:47→06:44)
[2017-10-29] MEDS: LEVOFLOXACIN 500 MG TABLET PO SCH (05:47)
[2017-10-29] MEDS: PANTOPRAZOLE SODIUM 40 MG TABLET PO SCH ×2 (05:51→06:43)
[2017-10-29] MEDS: IPRATROPIUM/ALBUTEROL (0.5MG/3MG) NEB INH SCH ×5 (05:52→21:28)
[2017-10-29 06:51] LABS: HEMATOCRIT 26.6 % (42.0-52.0); HEMOGLOBIN 8.7 gm/dl (14.0-18.0); MEAN CELL VOLUME 96.7 fl (81-97); MEAN CORPUSCULAR HEMOGLOBIN 31.6 pg (27-33); MEAN CORPUSCULAR HGB CONC 32.7 g/dl (32-36); MEAN PLATELET VOLUME 10.7 fl (7.4-10.4); PLATELET COUNT 136 K/uL (130-400); RED BLOOD COUNT 2.75 M/uL (4.40-5.70); WHITE BLOOD COUNT W/O DIFF 2.5 K/uL (4.2-12.2)
[2017-10-29 07:05] LABS: BLOOD UREA NITROGEN 17 mg/dL (8-23); CREATININE 0.9 mg/dL (0.7-1.2); EST GLOMERULAR FILTRATION RATE > 60 mL/min; GLUCOSE,RANDOM 114 mg/dL (74-109)
[2017-10-29] MEDS: PREDNISONE 20 MG TAB PO SCH (07:43)
[2017-10-29] MEDS: ENOXAPARIN 40 MG/0.4 ML SYR SQ SCH (09:09)
[2017-10-29] MEDS: BREO (FLUTICASONE/VILANTEROL) 100MCG/25MCG INHALER INH SCH (09:52)
--- NOTE | 2017-10-29 10:52 | Occupational Therapy Tx Note ---
Occupational Therapy Tx Note - Treatment Note Tolerated: Good Total Time Spent With Patient: 35 (ADL) Occupational Therapy Treatment Note: Detail (S: Pt up in chair, willing to participate in OT session. O: Sit to stand from chair to 2 wheeled walker with SBA and amb to sink with walker and CG assist. Pt doffed gown with assist to untie and completed upper body sponge bath in sitting and standing with SBA. Pt required max assist to wash back. Pt able to doff briefs Indly and completed lower body sponge bathing in standing and sitting with rest breaks due to fatigue. Pt able to don briefs with mod assist to start over left foot. Sit to stand with CG assist and able to pull up briefs with SBA. Pt able to don gown with mod assist. Pt completed combing hair in standing Indly. Pt amb back to chair with 2 wheeled walker and CG assist. A: Pt able to complete sponge bathing in sitting and standing with rest breaks and assist for back. Pt able to don briefs with mod assist (pt reports spouse helps with LE dressing at home). Pt fatigued easily but able to recover quickly with rest breaks.) Occupational Therapy Problem List: Detail (1. Decreased endurance needed for safe and Ind ADLs. 2. Decreased UE strength. 3. Need to further assess ADLs.) Occupational Therapy Goals: 1. Assess dressing/showering 2. Pt will demonstrate improved endurance needed for safe and Ind ADLs. 3. Pt will improve UE function to allow safe and Ind mobility and self cares. Prognosis: Good Occupational Therapy Plan: OT 2-4 days per week to address self cares, functional mobility, endurance and UE function to allow safe return home. Pt would benefit from home OT to ensure safety and Ind with ADLs.
[2017-10-29] MEDS ORDERED: PREDNISONE 10 MG TAB PO ONE (13:23)
--- NOTE | 2017-10-29 14:25 | Physical Therapy Tx Note ---
Physical Therapy Tx Note - Treatment Note Tolerated: Good Total Time Spent With Patient: 30 Physical Therapy Tx Note: Detail (Patient was sleeping sidelying in bed upon PAINTER HELPER SIGN arrival. Patient states tired this afternoon, hasn't slept well in the past couple days. Patient transferred supine to sit min assist x1. Patient transferred sit to and from stand SBA x1. Patient ambulated 35 feet with wheeled walker SBA x1. Patient performed the following exercises x10 reps each : seated hip flexion, LAQ, seated heel raises, seated toe raises, and seated hip adductor squeezes. Patient transferred sit to supine min assist required to lift LEs into bed. Patient required min assist to scoot shoulders over in bed. Patient tolerated treatment well. Patient reports fatigued after treatment. Patient was left supine in bed with call light within reach.) Physical Therapy Problem List: Detail (1. Needs assist for bed mobility. 2. History of falls 3. Impaired activity tolerance 4. Mild LE weakness) Physical Therapy Goals: 1. Pt will safely get in/out of bed. 2. Pt will safely and independently ambulate over household distances w/front wheeled walker - MET. 3. Pt will tolerate 20 minutes of light activity without undue fatigue. 4. Formally assess balance for safety recommendations. Prognosis: Good Physical Therapy Plan: Pt will be seen 1-2x/day M-F for balance assessment, LE strengthening, ambulation, therapeutic activity, to facilitate safe return to home environment.
[2017-10-29 16:09] LABS: KAPPA/LAMBDA RATIO 1.2
[2017-10-29] MEDS: ROPINIROLE HCL 1 MG TABLET PO SCH (21:47)
[2017-10-30] MEDS ORDERED: DIPHENHYDRAMINE HCL 25 MG CAPSULE PO ONE (00:25)
[2017-10-30] MEDS: IPRATROPIUM/ALBUTEROL (0.5MG/3MG) NEB INH SCH ×3 (03:53→10:05)
[2017-10-30] MEDS: LEVOFLOXACIN 500 MG TABLET PO SCH (06:28)
[2017-10-30] MEDS: PANTOPRAZOLE SODIUM 40 MG TABLET PO SCH (06:30)
[2017-10-30] MEDS: LEVOTHYROXINE SODIUM 100 MCG TABLET PO SCH (06:30)
[2017-10-30] MEDS ORDERED: PREDNISONE 10 MG TAB PO SCH (08:00)
[2017-10-30 08:25] LABS: FREE LAMBDA LT CHAINS 5.07 mg/dL
--- NOTE | 2017-10-30 08:39 | Discharge Note ---
VTE H&P Assessment - Risk for VTE Risk for VTE: Yes Risk Level: Moderate Risk Assessment Date: 10/25/17 Risk Assessment Time: 11:00 VTE Orders Placed or Will Be Placed: Yes Discharge Medications - Discharge Medications Prescriptions: Levofloxacin [Levaquin] 500 mg PO DAILYFLUOR #6 tablet Pantoprazole Sodium [Protonix] 40 mg PO DAILYAC #30 tablet. Home Medications: Ambulatory Orders Albuterol Sulfate [Proair Hfa] 1 - 2 puff IH .EVERY 4-6 HOURS PRN 01/24/15 [ Last Taken 10/24/17 17:56] Ropinirole HCl [Requip] 0.5 mg PO QHS 01/24/15 [Last Taken 10/24/17 17:56] Cholecalciferol (Vitamin D3) [Vitamin D3] 1,000 unit PO DAILY 05/09/17 [Last Taken 10/24/17 17:56] Comp.stocking,Thigh,Long,X-Sml [T.e.d. Anti-Embolism Stocking] 1 each MC ASDIR 05/09/17 [Last Taken 10/24/17 17:56] Multivit-Min/FA/Lycopen/Lutein [Centrum Silver Tablet] 1 each PO DAILY 05/09/17 [Last Taken 10/24/17 17:56] Acetaminophen [Tylenol 500Mg Tab] 1,000 mg PO Q8H PRN tablet 10/30/17 [Last Taken Unknown] Enoxaparin Sodium [Lovenox] 40 mg SQ DAILY syr 10/30/17 [Last Taken Unknown] Fluticasone/Vilanterol 100/25 [Breo Ellipta 100-25 Mcg INH] 1 puff INH DAILY inhaler 10/30/17 [Last Taken Unknown] Levofloxacin [Levaquin] 500 mg PO DAILYFLUOR #6 tablet 10/30/17 [Last Taken Unknown] Levothyroxine Sodium [Synthroid] 200 mcg PO DAILYTHY tablet 10/30/17 [Last Taken Unknown] Pantoprazole Sodium [Protonix] 40 mg PO DAILYAC #30 tablet. 10/30/17 [Last Taken Unknown] Polyvinyl Alcohol [Akwa Tears] 1 drop OPTH ASDIR PRN btl 10/30/17 [Last Taken Unknown] Prednisone [Prednisone 10Mg] 30 mg PO DAILYWM tab 10/30/17 [Last Taken Unknown] Zinc Oxide [Desitin] 28.35 gm TOP ASDIR PRN tube 10/30/17 [Last Taken Unknown] Discharge Note - Date Date of Discharge Note: 10/30/17 Disposition: Moved to Swing Bed Condition: (2) Stable Referrals: Fabien Pena D.O. [Primary Care Provider] - Forms: Patient Portal Access Activity at Discharge: Increase Activity as Tolerated
[2017-10-30] MEDS: ENOXAPARIN 40 MG/0.4 ML SYR SQ SCH (09:47)
[2017-10-30] MEDS ORDERED: GUAIFENESIN 600 MG TABCR PO SCH (10:00)
[2017-10-30] MEDS: BREO (FLUTICASONE/VILANTEROL) 100MCG/25MCG INHALER INH SCH (10:08)
[2017-10-30] MEDS ORDERED: CALCIUM CARBONATE 500 MG TAB.CHEW PO PRN (12:25)
--- NOTE | 2017-10-31 13:10 | Discharge Summary ---
DATE OF ADMISSION: 10/24/2017 DATE OF DISCHARGE: 10/30/2017 ATTENDING PHYSICIAN: Fabien Pena DO DISCHARGE DIAGNOSES: 1. Pneumonia. 2. Chronic anemia. 3. Acute and chronic anemia. 4. Coronary artery disease. 5. COPD. 6. Hypothyroidism. 7. Weakness, deconditioned. REASON FOR HOSPITALIZATION: Weakness, dyspnea, and inability to walk. Visiting nurse and felt he was too anemic to stay home and sent him to the emergency department via ambulance. He admits to nasal congestion, a fall recently, and right hip pain. He fell the day prior to admission. 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 His hemoglobin got down to 6 and he needed blood transfusions. He also had COPD, history of alcoholism, but he denies any further drinking. Some edema of the legs. He has a cough and congestion. SIGNIFICANT FINDINGS: His chest x-ray showed new bibasilar pleural effusions, hyperinflation suggesting COPD, questionable 1.5 cm nodule right upper lung, short term followup recommended. LABORATORY: Initially hemoglobin 6.2, white count was 2100. He had a sodium of 129, BUN is 15, creatinine is 0.9. He was transfused with 3 units of blood, his hemoglobin came up to 8.7 and stabilized at that point. His most recent CBC was 2500 with a WBC hemoglobin 8.7 and platelet count is 136,000. Potassium is 3.9, sodium is 134, chloride 102, BUN is 17, creatinine is 0.9. His sugar is 114, calcium 7.7, urine was negative for an infection. He had trace ketones. He does have some labs ordered by Dr. Grey. IgG was 1280. The IgA was 433, IgM was 162, kappa duration 1.2, MOY free lambda chain was 5.07, free kappa LC quant was 6.07. The C diff toxin of his stool was negative. The patient had a hip x-ray, which was negative for fracture. He also had a metastatic series, on order by Dr. Grey, which showed diffuse osteopenia in the lateral skull view, there appeared to be a couple of rounded radiolucencies which are not specific, although could be seen in association with myeloma. No additional lytic lesions identified elsewhere on the bony survey, degenerative changes in the spine, particularly in the lower cervical region and the lower lumbar region. The venous doppler of his legs were negative. THERAPY PROVIDED: The patient was given IV Levaquin and then switched over to oral Levaquin. He was transfused with 3 units of blood. He gradually improved his strength. He was eating and walking around the room, but needed assistance. At this point he feels that he needs to be in rehabilitation to get stronger before he can manage at home. HOSPITAL COURSE: Gradually improved. CONDITION ON DISCHARGE: Slightly improved. DISCHARGE INSTRUCTIONS: 1. The patient will be going to the swing bed program. 2. He will continue the medications that he is on. He will be on Levaquin 500 mg daily for 6 more days. 3. Prednisone taper 30 mg a day for 3 days, 20 mg a day for 3 days, 10 mg a day for 3 days. 4. He is on Levothyroxine 200 mg a day. 5. Protonix 40 mg a day. 6. ProAir 2 puffs q.4 hours p.r.n. 7. Requip 0.5 mg at h.s. 8. Benadryl 25 mg at h.s. 9. Breo ellipta 100/25 1 puff b.i.d. 10. Chloraseptic lozenges p.r.n. 11. Lovenox 40 mg subq. 12. Tylenol 1000 mg q.8 hours p.r.n. 13. Artificial Tears p.r.n. 14. Desitin to his bottom p.r.n. MTDD
== END 2017-10-30 14:42 | disposition swing bed (61) | DRG 195 ==
LOC: ER 17:03 → MEDSURG 19:44
PROVIDERS: ADMIT Emergency Medicine; ATTEND Emergency Medicine
DX: J18.9 Pneumonia, unspecified organism (principal); D64.9 Anemia, unspecified; W19.XXXA Unspecified fall, initial encounter; S70.01XA Contusion of right hip, initial encounter; R53.1 Weakness; J44.9 Chronic obstructive pulmonary disease, unspecified; D50.0 Iron deficiency anemia secondary to blood loss (chronic); E78.00 Pure hypercholesterolemia, unspecified; G25.81 Restless legs syndrome; I25.2 Old myocardial infarction; Z85.46 Personal history of malignant neoplasm of prostate; Z87.891 Personal history of nicotine dependence; F10.21 Alcohol dependence, in remission; Z95.0 Presence of cardiac pacemaker; I25.10 Atherosclerotic heart disease of native coronary artery without angina pectoris; E03.9 Hypothyroidism, unspecified
CPT/HCPCS: 71046; 77075; 80048; 81003; 82272; 82784; 83883; 85014; 85018; 85025; 85027; 86850; 86900; 86901; 87493; 93970; 94760; 94761; 97110; 97530; 97535; 99239; 99285; J1650; J1956; J2930; J7512

== ENCOUNTER 2017-11-26 09:46 | Inpatient (IN) | payer MEDICARE ==
--- NOTE | 2017-11-26 10:02 | Emergency Department Record ---
History of Present Illness - General Stated Complaint: WEAKNESS Time Seen by Provider: 11/26/17 09:55 Source: Patient, EMS Mode of Arrival: Ambulatory Limitations: No limitations - History of Present Illness Initial comments: 82 yo male presents by EMS. The patient states his call EMS due to passing out during the night. He has been very weak that is progressing. He denies and pain or injury. He did not hit his head with the syncope. He denies any chest pain. No shortness of breath. No fevers. He has had diarrhea. No vomiting. His PCP is Dr Pena. He has a history of deconditioning, weakness, anemia, CAD, COPD, Hypothyroidism. His anemia is chronic. He was evaluated by Dr Grey per the patient and her daughter. No specific cause has been identified at this time. -: Days(s) Location: Other (generalized) Consistency: Constant Improves with: None Worsens with: Movement Associated Symptoms: Weakness Treatments Prior to Arrival: None - Abel Coma Scale Eye Response: (4) Open spontaneously Motor Response: (6) Obeys commands Verbal Response: (5) Oriented Harvey Total: 15 - Related Data Home Medications Medication Instructions Recorded Confirmed Last Taken Levothyroxine Sodium [Synthroid] 125 mcg PO DAILYTHY 11/26/17 11/26/17 11/26/17 Ropinirole HCl [Requip] 0.25 mg PO DAILY 11/26/17 11/26/17 11/25/17 Trazodone HCl 50 mg PO DAILY 11/26/17 11/26/17 Unknown Previous Rx's Medication Instructions Recorded Albuterol Sulfate [Ventolin Hfa] 2 puff INH Q4H PRN inhaler 11/08/17 Nystatin 5 ml PO QID #100 ml 11/08/17 Omeprazole 20 mg PO DAILY #30 cap. 11/08/17 Allergies Allergy/AdvReac Type Severity Reaction Status Date / Time banana Allergy PT UNSURE Verified 11/26/17 09:58 OF REACTION cephalexin [From Keflex] Allergy NAUSEA AND Verified 11/26/17 09:58 VOMITING vancomycin Allergy RASH Verified 11/26/17 09:58 Penicillins [PENICILLINS] AdvReac Unknown VOMITING Verified 11/26/17 09:58 Review of Systems Constitutional: Reports: Malaise, Weakness. Denies: Chills, Fever Eyes: Denies: Eye discharge, Eye pain, Photophobia, Vision change ENT: Denies: Congestion, Throat pain Respiratory: Denies: Cough, Dyspnea, Hemoptysis, Stridor, Wheezes Cardiovascular: Reports: As per HPI, Syncope. Denies: Chest pain, Palpitations Endocrine: Reports: Fatigue. Denies: Polydipsia, Polyuria Gastrointestinal: Reports: Diarrhea. Denies: Abdominal pain, Nausea, Vomiting Genitourinary: Denies: Frequency, Hematuria, Urgency Musculoskeletal: Denies: Arthralgia, Back pain, Myalgia Skin: Denies: Bruising, Change in color, Rash Neurological: Reports: Weakness. Denies: Confusion, Headache, Numbness Psychiatric: Denies: Anxiety Hematological/Lymphatic: Reports: Anemia, Easy bruising. Denies: Easy bleeding , Swollen glands Past Medical History - SOCIAL HISTORY Smoking Status: Former smoker - RESPIRATORY Hx Respiratory Disorders: Yes Hx Asthma: Yes Hx COPD: Yes - CARDIOVASCULAR Hx Cardio Disorders: Yes Hx Abnormal EKG: Yes Hx Heart Attack: Yes Hx Hypertension: Yes Hx Pacemaker/Defib: Yes - NEURO Hx Neuro Disorders: Yes Hx CVA: Yes (DENIES ANY RESIDUAL) - GI Hx GI Disorders: Yes Comment:: constipation - Hx Genitourinary Disorders: Yes Hx Prostate Problems: Yes (Prostate) - ENDOCRINE Hx Endocrine Disorders: Yes Hx Thyroid Disease: Yes (Hypo) - MUSCULOSKELETAL Hx Musculoskeletal Disorders: Yes Hx Arthritis: Yes (Generalized) - PSYCH Hx Psych Problems: No - HEMATOLOGY/ONCOLOGY Hx Hematology/Oncology Disorders: Yes Hx Cancer: Yes (Prostate) Hx Chemotherapy: No Hx Radiation Therapy: No Family Medical History Family Hx Comment (NOT TO BE USED IN PLACE OF ITEMS BELOW): CA and heart disease Hx Cancer: Brother/Sister Hx Heart Disease: Father Physical Exam - General General Appearance: Alert, Oriented x3, Cooperative, Other (appears elderly and frail) Limitations: No limitations - Head Head exam: Atraumatic, Normocephalic, Normal inspection - Eye Eye exam: Normal appearance, PERRL. negative: Conjunctival injection, Scleral icterus - ENT ENT exam: Normal exam, Mucous membranes dry. negative: Mucous membranes moist, Normal orophraynx Ear exam: Normal external inspection Nasal Exam: Normal inspection Mouth exam: Normal external inspection Teeth exam: negative: Normal inspection Throat exam: Normal inspection - Neck Neck exam: Normal inspection, Full ROM. negative: Lymphadenopathy, Tenderness, Thyromegaly - Respiratory Respiratory exam: Normal lung sounds bilaterally. negative: Respiratory distress - Cardiovascular Cardiovascular Exam: Regular rate, Normal rhythm, Normal heart sounds Peripheral Pulses: 2+: Radial (R), Radial (L) - GI/Abdominal GI/Abdominal exam: Soft. negative: Tenderness - Rectal Rectal exam: Deferred - exam: Deferred - Extremities Extremities exam: Normal inspection, Full ROM, Normal capillary refill, Pedal edema (+1 bilateral). negative: Tenderness - Back Back exam: Reports: Normal inspection. Denies: CVA tenderness (R), CVA tenderness (L) - Neurological Neurological exam: Alert, Oriented X3, Other (generalized weakness). negative: Altered - Psychiatric Psychiatric exam: Normal affect, Normal mood - Skin Skin exam: Dry, Intact, Normal color, Warm Course - Reevaluation(s) Reevaluation #1: EKG 0952 Narrow complex rhythm regular rate 83, intervals Qtc 475, axis normal ST NS changes. NS changes from 05/09/2017 11/26/17 10:11/26/17 11:26 The labs were reviewed Hgb is 7.1 (Prior was 8.6 on 11/13/17) WBC is 2.4 Na is 130 Troponin 0.109 11/26/17 11:27 11/26/17 11:56 The HCT was reviewed No acute process The CXR demonstrates R sided opacity or atelectasis, blunted angels, small L effusion. The patient's PCP will be contacted 11/26/17 12:00 I REBEL Pena for admission We discussed the anemia, elevated troponin, weakness, syncope, The patient has chronic findings that are again worse. 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 He has not agreed with this to date. 11/26/17 12:01 Medical Decision Making - Lab Data Result diagrams: 11/26/17 09:31 11/26/17 09:31 Disposition Disposition: Admit Clinical Impression: Anemia, Weakness, Physical deconditioning, Hyponatremia, Elevated troponin, Syncope Disposition: Still a Patient at [facility] Decision to Admit: Admit from ER Decision to Admit Date: 11/26/17 Decision to Admit Time: 12:03 Condition: (2) Stable Time of Disposition: 12:03 Quality - Quality Measures Quality Measures: N/A - Blood Pressure Screening Does Patient Have Any of the Following: No Blood Pressure Classification: Pre-Hypertensive BP Reading Systolic Measurement: 123 Diastolic Measurement: 59 Screening for High Blood Pressure: < Pre-Hypertensive BP, F/U Documented > [ [id number]] Pre-Hypertensive Follow-up Interventions: Referral to alternative/primary care provider.
[2017-11-26 10:26] LABS: BASO % 0.4 % (0-6); EOS % 0.8 % (0-6); HEMATOCRIT 20.6 % (42.0-52.0); HEMOGLOBIN 7.1 gm/dl (14.0-18.0); LYMPH % 48.7 % (16-45); MEAN CELL VOLUME 99.5 fl (81-97); MEAN CORPUSCULAR HGB CONC 34.5 g/dl (32-36); MEAN PLATELET VOLUME 10.4 fl (7.4-10.4); MONO % 2.1 % (0-9); PLATELET COUNT 187 K/uL (130-400); RED BLOOD COUNT 2.07 M/uL (4.40-5.70); RED CELL DISTRIBUTION WIDTH 23.7 % (11.5-14.5); WHITE BLOOD COUNT W/O DIFF 2.4 K/uL (4.2-12.2)
[2017-11-26 10:36] LABS: BLOOD UREA NITROGEN 18 mg/dL (8-23); CREATININE 0.9 mg/dL (0.7-1.2); EST GLOMERULAR FILTRATION RATE > 60 mL/min
[2017-11-26 10:37] LABS: TOTAL PROTEIN 5.1 g/dL (6.6-8.7)
[2017-11-26 10:39] LABS: GLUCOSE,RANDOM 87 mg/dL (74-109)
[2017-11-26 10:42] LABS: ALBUMIN 2.7 g/dL (4.0-5.0); ALKALINE PHOSPHATASE 153 U/L (40-129); ALT/SGPT 25 U/L (<41); AST/SGOT 40 U/L (10.0-50.0); MEAN CORPUSCULAR HEMOGLOBIN 34.2 pg (27-33)
[2017-11-26 10:43] LABS: ALB/GLOB RATIO 1.1 (1.1-1.8)
[2017-11-26 10:52] LABS: THYROID STIMULATING HORMONE 1.07 uIU/mL (0.270-4.20)
[2017-11-26 10:54] LABS: INR 1.9; PARTIAL THROMBOPLASTIN TIME 52.8 SECONDS (24.5-39.1); PROTHROMBIN TIME (PATIENT) 20.4 SECONDS (9.5-12.1)
[2017-11-26 11:32] LABS: ABO GROUP A; ANTIBODY SCREEN NEGATIVE (NEGATIVE); RH TYPE POSITIVE
[2017-11-26] MEDS ORDERED: ALBUTEROL HFA 8 GM INHALER INH PRN ×2 (13:21)
[2017-11-26 13:34] LABS: IMMED. SPIN CROSSMATCH COMPATIBLE
[2017-11-26 13:49] LABS: IMMED. SPIN CROSSMATCH COMPATIBLE
[2017-11-26] MEDS ORDERED: NYSTATIN 100,000 UNITS/ML 5ML CUP PO SCH (14:00)
--- NOTE | 2017-11-26 15:14 | CT SCAN REPORT ---
EXAM: EMERGENCY HEAD CT HISTORY: SYNCOPE LAST NIGHT. TECHNIQUE: Axial CT scan of the head was performed without IV contrast. Comparison: Head CT 01/16/17. FINDINGS: No definite acute intracranial hemorrhage identified. No focal mass effect or midline shift apparent. Moderate generalized atrophy as before with some chronic appearing deep white matter changes as before, nonspecific, but likely representing some chronic small vessel deep white matter ischemic disease. No definite acute infarct identified. No depressed calvarial fracture is evident. IMPRESSION: 1. GENERALIZED ATROPHY WITH CHRONIC APPEARING DEEP WHITE MATTER CHANGES BEFORE. 2. NO DEFINITE ACUTE INTRACRANIAL HEMORRHAGE OR FOCAL MASS EFFECT IDENTIFIED. JOB NUMBER: [id number] MTDD
--- NOTE | 2017-11-26 15:18 | RADIOLOGY REPORT ---
EXAM: CHEST, TWO VIEWS HISTORY: SHORTNESS OF BREATH. TECHNIQUE: PA and lateral views of the chest were obtained. Comparison: Two view chest 10/26/17. FINDINGS: Stable heart size, however, there has probably been an increase in right pleural effusion in the interval particularly as seen on the lateral view. Small left pleural effusion as well. There is again a suggestion of a nodule/mass right upper lobe that appears to be slightly larger at about 1.8 cm in size today. Follow-up chest CT is suggested for further assessment of this. There is some mild streaky atelectasis or infiltrate in the right base as well. Thoracic curve to the right as before. Pacemaker remains in place with no pneumothorax evident. IMPRESSION: 1. INCREASE IN RIGHT PLEURAL EFFUSION SINCE 10/26/17. A SMALL AMOUNT OF NEW ATELECTASIS OR INFILTRATE IN THE RIGHT BASE WELL. 2. PROBABLE 1.8 CM NODULE RIGHT UPPER LUNG APPEARING SLIGHTLY LARGER THAN ON 10/26/17. FOLLOW-UP CHEST CT IS SUGGESTED. 3. PACEMAKER REMAINS IN PLACE WITH NO PNEUMOTHORAX EVIDENT. JOB NUMBER: [id number] [facility]
[2017-11-26 15:21] LABS: URINE APPEARANCE CLEAR; URINE BILIRUBIN NEGATIVE (NEGATIVE); URINE BLOOD TRACE-I (NEGATIVE); URINE COLOR YELLOW; URINE GLUCOSE (UA) NEGATIVE (NEGATIVE); URINE KETONE 15 mg/dL (NEGATIVE); URINE LEUKOCYTE ESTERASE SMALL (NEGATIVE); URINE NITRITE NEGATIVE (NEGATIVE); URINE PROTEIN NEGATIVE (NEGATIVE)
[2017-11-26 15:35] LABS: URINE MUCUS LIGHT
[2017-11-26] MEDS: ROPINIROLE HCL 1 MG TABLET PO SCH (21:46)
[2017-11-26] MEDS: TRAZODONE 50 MG TABLET PO SCH (21:48)
[2017-11-27] MEDS: PANTOPRAZOLE SODIUM 40 MG TABLET PO SCH (06:01)
[2017-11-27] MEDS: LEVOTHYROXINE SODIUM 100 MCG TABLET PO SCH (06:01)
[2017-11-27 06:44] LABS: HEMATOCRIT 24.5 % (42.0-52.0); HEMOGLOBIN 8.2 gm/dl (14.0-18.0); MEAN CELL VOLUME 94.2 fl (81-97); MEAN CORPUSCULAR HEMOGLOBIN 31.5 pg (27-33); MEAN CORPUSCULAR HGB CONC 33.5 g/dl (32-36); MEAN PLATELET VOLUME 9.7 fl (7.4-10.4); PLATELET COUNT 149 K/uL (130-400); RED CELL DISTRIBUTION WIDTH 20.3 % (11.5-14.5); WHITE BLOOD COUNT W/O DIFF 2.1 K/uL (4.2-12.2)
[2017-11-27 07:05] LABS: ALB/GLOB RATIO 1.1 (1.1-1.8); ALBUMIN 2.3 g/dL (4.0-5.0); ALKALINE PHOSPHATASE 133 U/L (40-129); ALT/SGPT 22 U/L (<41); AST/SGOT 35 U/L (10.0-50.0); BLOOD UREA NITROGEN 16 mg/dL (8-23); CREATININE 0.8 mg/dL (0.7-1.2); EST GLOMERULAR FILTRATION RATE > 60 mL/min; GLUCOSE,RANDOM 80 mg/dL (74-109); TOTAL PROTEIN 4.4 g/dL (6.6-8.7)
[2017-11-27 07:07] LABS: ANISOCYTOSIS 1+; HYPOCHROMIA 1+; PLATELET ESTIMATE NORMAL (NORMAL)
[2017-11-27] MEDS: CHOLECALCIFEROL 1,000 UNIT TABLET PO SCH (09:41)
[2017-11-27] MEDS: MULTIVITAMINS/MINERALS TABLET PO SCH (09:41)
--- NOTE | 2017-11-27 12:31 | History and Physical Report ---
DATE: 11/26/2017 CHIEF COMPLAINT: Weakness and syncope. HISTORY OF PRESENT ILLNESS: This 82-year-old male presented to the emergency department by ambulance because he passed out during the night. He was very weak which was progressively getting worse since he was released from our rehab unit. He denies any pain or injury. He did not hit his head with the syncope. Denies any chest pain. No shortness of breath. No fevers. Just weak. He has had diarrhea. No vomiting. He has been evaluated by Dr. Perez for his anemia and it was recommended he go into hospice care but he refused to go in because of chronic anemia that is not resolving with treatment. Possibility of myelodysplastic syndrome. He is being admitted for transfusion of 2 units of blood and further evaluation. 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 He did use tobacco and has a history of using it for a long time but he stopped smoking. PAST SURGICAL HISTORY: Bilateral cataracts, prostate surgery, prostate cancer, pacemaker. MEDICATIONS: 1. Requip 0.25 at h.s. 2. Trazodone 50 mg at h.s. 3. Albuterol inhaler 2 puffs q.4 h. p.r.n. 4. Co-Q10, 100 mg daily. 5. Advair 100/50 one puff b.i.d. 6. Levothyroxine 200 mcg a day. 7. Omeprazole 20 mg a day. 8. Multivitamin one a day. ALLERGIES: BANANA, KEFLEX, VANCOMYCIN, PENICILLIN. FAMILY/PSYCHOSOCIAL HISTORY: Former smoker. He also chewed tobacco more than a year ago, he quit. He has a long history of alcoholism; however, he stopped drinking. No drug abuse. His brother and sister had cancer. Father had heart disease. The is currently in hospice with lung cancer. She has been in [facility] for 7 months and not progressing. REVIEW OF SYSTEMS: HEENT: He does have congestion and cough. His lips are normal. Cardiovascular: No chest pain, palpitations, or arrhythmia. Respiratory: He has a chronic cough. He has a long-standing history of COPD. Gastrointestinal: No nausea, vomiting, diarrhea, black stools, or bloody stools. Genitourinary: No dysuria, hematuria, frequency, or burning on urination. Musculoskeletal: He has arthritis. Moving all 4 extremities. Neurological: Previous stroke with no residual paralysis. Endocrine: He has hypothyroidism. No diabetes. Integument: No rash, ulcers, change in moles, or yellow skin. PHYSICAL EXAMINATION: VITALS: Height 5 feet 6 inches, weight 153 pounds. Temperature 98, pulse 89, blood pressure 123/74, respiratory rate 18, pulse ox 96% on room air. HEENT: Pupils are equal, round, and reactive to light and accommodation. Extraocular muscles are intact. Throat is clear. Nose is clear. Tympanic membranes are coleman. Lips are normal. NECK: Supple. No jugular venous distention. No hepatojugular reflux. No carotid bruits. Thyroid is smooth. CARDIOVASCULAR: Regular rate and rhythm without murmurs, clicks, rubs, or gallops. RESPIRATORY: Coarse breath sounds equal bilaterally. ABDOMEN: Soft, nontender. No hepatosplenomegaly, no masses, no tenderness. Bowel sounds are active. EXTREMITIES: Scant edema in the legs. BREASTS: Normal male breasts. RECTAL: Exam deferred. GENITALIA: Deferred. NEUROLOGIC: Cranial nerves II-XII intact. No gross defects. Sensation normal, strength normal. Deep tendon reflexes equal bilaterally with Babinski negative. MENTAL STATUS: Alert and oriented x3. LABORATORY DATA: Troponin T is elevated at 0.109. His BUN is 18, creatinine is 0.9. UA showing epithelial cells 7-10, WBCs 3-5, RBCs 3-6. EKG with regular rhythm. Looks like it may be paced but from the atrial point, it is hard to see T waves but no acute ST-T-wave changes. Also, his PT/INR is gapped without an anticoagulant, so his liver is questionable at this point. IMPRESSION: 1. Anemia, acute on chronic. 2. Weakness. 3. Hyponatremia, sodium 130. 4. History of pacemaker. 5. History of hypothyroidism. 6. History of prostate cancer. 7. History of osteoarthritis. 8. Chronic obstructive pulmonary disease. PLAN: Transfuse 2 units of blood. Physical therapy and occupational therapy to try to strengthen him up again. INPATIENT CERTIFICATION: Admit to inpatient care. Based on my medical assessment, after consideration of patient's risk factors, age, comorbidities, and patient's presenting symptoms and acuity, I expect that this patient will remain in the hospital greater than or equal to 2 midnights and that the services needed warrant inpatient care. Estimated length of stay is 3 days. The patient may reasonably be expected to be discharged or transferred to a hospital within 96 hours after admission to [facility]. I certify that my determination is in accordance with my understanding of Medicare requirements for reasonable and necessary inpatient services. DANNY
--- NOTE | 2017-11-27 12:51 | Occupational Therapy Tx Note ---
Occupational Therapy Tx Note - Treatment Note Occupational Therapy Treatment Note: Detail (Pt on hold at this time due to medical issues.)
--- NOTE | 2017-11-27 15:36 | Physical Therapy Tx Note ---
Physical Therapy Tx Note - Treatment Note Physical Therapy Tx Note: Detail (PT eval was held today per nursing staff request due to decreased clotting factor. Will Evaluate patient tomorrow.)
[2017-11-27] MEDS: TRAZODONE 50 MG TABLET PO SCH (21:45)
[2017-11-27] MEDS: ROPINIROLE HCL 1 MG TABLET PO SCH (21:45)
[2017-11-28] MEDS: LEVOTHYROXINE SODIUM 100 MCG TABLET PO SCH (06:09)
[2017-11-28] MEDS: PANTOPRAZOLE SODIUM 40 MG TABLET PO SCH (06:10)
[2017-11-28] MEDS ORDERED: PHYTONADIONE 10 MG/ML AMPUL PO ONE (09:32)
[2017-11-28] MEDS: CHOLECALCIFEROL 1,000 UNIT TABLET PO SCH (09:49)
[2017-11-28] MEDS: MULTIVITAMINS/MINERALS TABLET PO SCH (09:49)
--- NOTE | 2017-11-28 12:15 | Rehab Evaluation ---
Patient Information - Patient Information Diagnosis: Anemia, Weakness, Hyponatremia, Elevated Troponin Ordered Treatment: PT Evaluate and Treat Status: Initial Evaluation Surgery: No Past Medical/Surgical Hx: PAST MEDICAL/SURGICAL HISTORY Past Surgical History Pacemaker Prostate surgery 2000 Bilateral cataract PMH - Respiratory Hx Respiratory Disorders Yes Hx Asthma Yes Hx Chronic Obstructive Yes Pulmonary Disease (COPD) PMH - Cardiovascular Hx Cardiovascular Disorders Yes Hx Abnormal EKG Yes Hx Heart Attack Yes Hx Hypertension Yes Hx Pacemaker/Defibrillator Yes PMH - Neuro Hx Neurological Disorders Yes Hx Cerebrovascular Accident Yes: DENIES ANY RESIDUAL PMH - GI Hx Gastrointestinal Disorders Yes Comment: constipation PMH - Hx Genitourinary Disorders Yes Hx Prostate Problems Yes: Prostate PMH - Endocrine Hx Endocrine Disorders Yes Hx Diabetes No Hx Thyroid Disease Yes: Hypo PMH - Musculoskeletal Hx Musculoskeletal Disorders Yes Hx Arthritis Yes: Generalized PMH - Psych Hx Psychiatric Problems No PMH - Hematology/Oncology Hx Hematology/Oncology Yes Disorders Hx Cancer Yes: Prostate Hx Chemotherapy No Hx Radiation Therapy No Social History: Detail (The patient lives in a single story home with his , and his daughter lives next door. The patient's home has 5 steps to enter with a railing on the right when ascending. The patient has a walk-in shower and has a shower seat with grab bars present. The toilet is elevated and has grab bars present on each side. He has been using a 2WW for the past 6 months or so) Precautions: Fall - Time With Patient Total Time Spent With Patient (Min): 30 Treatment Procedures: Detail (PT Initial Evaluation) Subjective Information - Subjective Information Per Patient (The patient reports that he is not moving around much since his last admission. No complaints of pain.) Objective Data - Pain Pain Present: No Pain Intensity: 0 Pain Scale Used: Numeric (1 - 10) - Mental Status Patient Orientation: Oriented x3 (Had to have verbal cues to remind of the patient of his current location, but was able to redirect.) - ROM Within normal limits (No ROM limitations present in B LEs) - Strength/Tone Within normal limits (Full resistance testing was not completed, but the patient was able to move all major LE joints against gravity - MMT Grade 3+/5 throughout.) - Bed Mobility Independent (The patient was able to transfer from supine to sit independently with use of bed rails.) - Transfers Needs Assist (The patient required min. assist x 1 to transfer from sit to stand , but was independent with stand to sit into a recliner.) - Balance Balance Sitting: Good (No LOB with sitting at the bedside to assess LE ROM) Balance Standing: Fair (The patient had posterior weight shift when standing in his walker, but was able to self-correct. The patient had no LOB during gait activities, but was slightly unsteady.) - Sensation Intact - Gait Detail (The patient used a 2WW and CGA x 1 during ambulation. He was able to ambulate from his bedside to his recliner in the room (about 6 feet). He had no LOB, but was slightly unsteady throughout.) Therapy Assessment - Therapy Assessment Detail (The patient has decreased LE strength which is limiting his ability to complete transfers and gait activities. The patient is unable to ambulate household distances at this time, but has potential to achieve this goal. The patient required assistance with transfers, as well. The patient would benefit from continued therapy in a long-term care setting to address functional mobility, transfer skills, and gait skills.) Problem List - Problem List Physical Therapy Problem List: Detail (1) Assistance with transfers required 2) Not able to ambulate household distances 3) Decreased LE strength 4) Fall Risk) Goals - Goals Physical Therapy Goals: 1) The patient will be able to ambulate short household distances to safely perform self-care duties in the restroom. 2) The patient will increase LE strength to complete sit to stand transfers with supervision only Prognosis - Prognosis Good Plan - Plan Physical Therapy Plan: The patient will be seen 1-2x/day M-F for continued gait training and transfer training until D/C from [facility]. He would benefit from continued PT to address functional limitations listed in assessment.
--- NOTE | 2017-11-28 12:41 | Rehab Evaluation ---
Patient Information - Patient Information Diagnosis: Anemia, Weakness, Hyponatremia, Elevated Troponin Ordered Treatment: OT Evaluate and Treat Status: Initial Evaluation Surgery: No Past Medical/Surgical Hx: PAST MEDICAL/SURGICAL HISTORY Past Surgical History Pacemaker Prostate surgery 2000 Bilateral cataract PMH - Respiratory Hx Respiratory Disorders Yes Hx Asthma Yes Hx Chronic Obstructive Yes Pulmonary Disease (COPD) PMH - Cardiovascular Hx Cardiovascular Disorders Yes Hx Abnormal EKG Yes Hx Heart Attack Yes Hx Hypertension Yes Hx Pacemaker/Defibrillator Yes PMH - Neuro Hx Neurological Disorders Yes Hx Cerebrovascular Accident Yes: DENIES ANY RESIDUAL PMH - GI Hx Gastrointestinal Disorders Yes Comment: constipation PMH - Hx Genitourinary Disorders Yes Hx Prostate Problems Yes: Prostate PMH - Endocrine Hx Endocrine Disorders Yes Hx Diabetes No Hx Thyroid Disease Yes: Hypo PMH - Musculoskeletal Hx Musculoskeletal Disorders Yes Hx Arthritis Yes: Generalized PMH - Psych Hx Psychiatric Problems No PMH - Hematology/Oncology Hx Hematology/Oncology Yes Disorders Hx Cancer Yes: Prostate Hx Chemotherapy No Hx Radiation Therapy No Social History: Detail (Pt reports he lives in a single story home with his , and his daughter lives next door. The patient's home has 5 steps to enter with a railing on the right when ascending. The patient has a walk-in shower and has a shower seat with grab bars present. He reports his helps him with LE dressing and he has an aide assist him in showering 1 x per week. The toilet is elevated and has grab bars present on each side. He has been using a 2WW for the past 6 months or so.) Precautions: [place], Fall - Time With Patient Total Time Spent With Patient (Min): 30 Treatment Procedures: Detail (OT eval low complexity) Subjective Information - Subjective Information Per Patient Objective Data - Pain Pain Present: No - Mental Status Patient Orientation: Person (Pt oriented to self, birthday, age, he stated he was in a [facility], the month as October and the year 2017. He was able to recall location and month with cueing.) - Visual Perception Appears within normal limits for therapeutic activities - ROM Within normal limits (Senthil UE AROM grossly WNL) - Strength/Tone Within normal limits (Senthil UE strength 4+/5 throughout) - Coordination Appears within normal limits for therapeutic activities - Bed Mobility Independent (Ind with supine to sit) - Transfers Needs Assist (Sit to stand from EOB with min assist x 1 to walker.) - Balance Balance Sitting: Good Balance Standing: Fair (Pt had mild unsteadiness in standing at EOB.) - Sensation Intact - Gait Detail (Pt ambulated several feet with CG assist and 2 wheeled walker.) - ADL's/IADL's Detail (Pt using urinal with nursing assist. He was able to don PJ bottoms with max assist to start over feet. Other ADLs not formally assessed.) Therapy Assessment - Therapy Assessment Detail (Pt presents with decreased endurance needed for safe and Ind ADLs and functional mobility.) Problem List - Problem List Physical Therapy Problem List: Detail (1) Assistance with transfers required 2) Not able to ambulate household distances 3) Decreased LE strength 4) Fall Risk) Occupational Therapy Problem List: Detail (1. Decreased endurance. 2. Decreased Ind with self care activities.) Goals - Goals Physical Therapy Goals: 1) The patient will be able to ambulate short household distances to safely perform self-care duties in the restroom. 2) The patient will increase LE strength to complete sit to stand transfers with supervision only. 3) The patient will be able to safely ambulate household distances to decrease fall risk once discharged from [facility]. Occupational Therapy Goals: 1. Pt will demonstrate improved endurance needed for safe and Ind self cares. 2. Pt will be Ind with upper body self cares and grooming/hygiene. Prognosis - Prognosis Moderate Plan - Plan Physical Therapy Plan: The patient will be seen 1-2x/day M-F for continued gait training and transfer training until D/C from [facility]. He would benefit from continued PT to address functional limitations listed in assessment. Occupational Therapy Plan: OT 2-4 times per week to address endurance, functional mobility, self care activities.
[2017-11-28] MEDS ORDERED: ACETAMINOPHEN 325 MG TAB PO PRN (13:59)
--- NOTE | 2017-11-28 14:05 | Discharge Note ---
VTE H&P Assessment - Risk for VTE Risk for VTE: Yes Risk Level: Moderate Risk Assessment Date: 11/26/17 Risk Assessment Time: 09:00 VTE Orders Placed or Will Be Placed: No VTE Reason for No Prophylaxis: Not Indicated (coagulopathy) Discharge Medications - Discharge Medications Home Medications: Ambulatory Orders Multivit-Min/FA/Lycopen/Lutein [Centrum Silver Tablet] 1 each PO DAILY 05/09/17 [Last Taken 11/26/17] Albuterol Sulfate [Ventolin Hfa] 2 puff INH Q4H PRN inhaler 11/08/17 [Last Taken Unknown] Omeprazole 20 mg PO DAILY #30 cap. 11/08/17 [Last Taken 11/26/17] Levothyroxine Sodium [Synthroid] 200 mcg PO DAILYTHY 11/26/17 [Last Taken ] Ropinirole HCl [Requip] 0.25 mg PO QHS 11/26/17 [Last Taken 11/25/17] Trazodone HCl 50 mg PO QHS 11/26/17 [Last Taken Unknown] Acetaminophen [Tylenol 325Mg] 650 mg PO Q8H PRN tablet 11/28/17 [Last Taken Unknown] Albuterol Sulfate [Ventolin Hfa] 2 puff INH Q4H PRN inhaler 11/28/17 [Last Taken Unknown] Levothyroxine Sodium [Synthroid] 200 mcg PO DAILYTHY tablet 11/28/17 [Last Taken Unknown] Discharge Note - Date Date of Discharge Note: 11/28/17 Disposition: Hospice; pt to live @facility Condition: (2) Stable Additional Instructions: patient going in to hospise diagnosis mylodysplastic syndrome chronic anemia coagulopathy liver cirrhosis COPD history of prostate cancer hypothroidism history of pacemaker Forms: Patient Portal Access
--- NOTE | 2017-11-29 12:21 | Discharge Summary ---
DATE: 11/28/2017 DISCHARGE DIAGNOSES: 1. Myelodysplastic syndrome. 2. Anemia, acute on chronic. 3. History of prostate cancer. 4. History of pacemaker. 5. History of hypothyroidism. 6. Hyponatremia. Sodium is 131. 7. History of osteoarthritis. 8. History of chronic obstructive pulmonary disease. Patient going into hospice care and is a do not resuscitate. 9. Liver cirrhosis. 10. History of alcoholism, stopped drinking 2-3 years ago. 11. Gastroesophageal reflux disease. 12. Coronary artery disease. 13. Restless leg syndrome. 14. History of tobacco use, stopped many years ago. ATTENDING PHYSICIAN: Fabien Pena DO REASON FOR HOSPITALIZATION: Weakness and syncope and anemia. This 82-year-old male presented to the emergency department by ambulance because he passed out during the night. He was very weak which was progressively getting worse since he was released about 2 weeks ago. He denied any pain or injury. Denied that he hit his head with the syncope. He denies chest pain. No shortness of breath, no fever. He is just very weak. His hemoglobin was around 7.1. Dr. Perez has worked this up and felt that he is end stage with myelodysplastic syndrome and she recommended hospice but he was contemplating and decided not to go in at this time, so he was admitted to the hospital for traditional care. He is a do not resuscitate. SIGNIFICANT FINDINGS: Laboratory. Hemoglobin initially was 7.1. After 2 units of blood, it went up to 8.2. His initial coags in the emergency department had a PT/INR of 1.9 and a PT of 52. The next day the PT went to greater than 300 and not clotting and the PTT went up to 57. He was given 2 units of fresh frozen plasma and vitamin K the next day. He has no signs of bleeding. His WBC was 2100, hemoglobin 8.2 after 2 units of blood. RBC was low at 2,600,000. His platelet count is 149,000. Sodium was 131, BUN 16, creatinine 0.8, glucose 80, calcium 7.5, magnesium 1.9. The total bilirubin was a little bit up at 2.2. Liver enzymes are normal. Alkaline phosphatase is 133. Troponin was elevated at 0.104, came down to 0.08. Discussed the case on the phone with Dr. Amaya. [place] because of the coagulopathy, no cardiovascular interventions were necessary at this time and they were not indicated. TSH is normal at 1.07. Urine RBCs 3-6, WBCs 3-5, epithelials 7-10, ethyl alcohol negative. HOSPITAL COURSE: The patient was a little bit stronger after getting 2 units of blood, 2 units of fresh frozen plasma, and vitamin K. Discussion that there is no further care indicated at this point and the patient at this point has decided to go into hospice care. He is a do not resuscitate. Talked to the family and they are in agreement. We will set up a [facility] hospice bed for him, which is what the family would like him to do. They feel they do not have the resources to do hospice at home for him. They are doing that for his . Gradually improved because of the transfusions; however, very guarded condition because his anemia is going to progressively continue and it will slowly drop down and he will finally . He also has a coagulopathy and could easily bleed. His fibrinogen was very low, less than 50. CONDITION ON DISCHARGE: Very guarded because of his condition. DISCHARGE PLAN: He is going into hospice care at [facility]. We will continue the medications of Requip 0.25 at h.s., trazodone 50 mg at h.s., albuterol 2 puffs q.4 h. p.r.n., levothyroxine 200 mcg a day, omeprazole 20 mg a day, multivitamin 1 a day. Comfort care measures can be started through hospice if necessary. He has been using Tylenol for pain up to this patient, which seemed to be handling his pain. DANNY
== END 2017-11-28 15:50 | disposition hospice, inpatient (51) | DRG 812 ==
LOC: ER 09:46 → MEDSURG 12:45
PROVIDERS: ADMIT Emergency Medicine; ATTEND Emergency Medicine
DX: D46.9 Myelodysplastic syndrome, unspecified (principal); D53.9 Nutritional anemia, unspecified; E87.1 Hypo-osmolality and hyponatremia; R53.1 Weakness; R79.89 Other specified abnormal findings of blood chemistry; R55 Syncope and collapse; J44.9 Chronic obstructive pulmonary disease, unspecified; I25.10 Atherosclerotic heart disease of native coronary artery without angina pectoris; I10 Essential (primary) hypertension; E03.9 Hypothyroidism, unspecified; M19.90 Unspecified osteoarthritis, unspecified site; R19.7 Diarrhea, unspecified; E78.00 Pure hypercholesterolemia, unspecified; Z95.0 Presence of cardiac pacemaker; I25.2 Old myocardial infarction; Z86.73 Personal history of transient ischemic attack (TIA), and cerebral infarction without residual deficits; Z85.46 Personal history of malignant neoplasm of prostate; F10.21 Alcohol dependence, in remission; Z87.891 Personal history of nicotine dependence
CPT/HCPCS: 83735; 85384; 85025; 85730; 85610; 80053; 81001; 84443; 84484; 86900; 86901; 86850; 71046; 70450; 93005; 93010; G0480; 80320; 85027; 94761; 99285